=== PATIENT | female | born 1980 | race Caucasian/White ===

== ENCOUNTER 2016-03-19 04:32 | Emergency (ER) | payer BC ==
[2016-03-19 04:37] VITALS: RESP 18
[2016-03-19] MEDS ORDERED: NITROGLYCERIN OINT 1 INCH/GM PACKET TOPICAL STA (04:47)
[2016-03-19] MEDS ORDERED: ASPIRIN 81 MG CHEW PO STA (04:47)
--- NOTE | 2016-03-19 04:49 | ED ---
General Adult HPI - General Chief complaint: Chest Pain Stated complaint: chest pain Time Seen by Provider: 03/19/16 04:43 Source: patient, RN notes reviewed Mode of arrival: ambulatory Limitations: no limitations - History of Present Illness Initial comments: Patient is a pleasant 35-year-old female presenting to emergency Department complaining of chest discomfort. Onset of symptoms was around 2:00. Patient was awake at that time. Patient has had tightness in the right sternal region. There is radiation towards the right arm. No associated dyspnea, nausea, or diaphoresis. Symptoms have been waxing and waning. Discomfort is currently rated 2/10. - Related Data Home Medications Medication Instructions Recorded Confirmed Multivitamins, Thera [Multivitamin] 1 tab PO DAILY 09/22/15 03/19/16 Venlafaxine HCl [Effexor XR] 300 mg PO DAILY 09/22/15 03/19/16 lamoTRIgine [LaMICtal] 200 mg PO BID 09/22/15 03/19/16 Propranolol [Inderal] 20 mg PO BID 03/19/16 03/19/16 Allergies Allergy/AdvReac Type Severity Reaction Status Date / Time No Known Allergies Allergy Verified 09/30/15 23:48 Review of Systems ROS Statement: Those systems with pertinent positive or pertinent negative responses have been documented in the HPI. ROS Other: All systems not noted in ROS Statement are negative. Constitutional: Denies: fever Eyes: Denies: eye pain ENT: Denies: ear pain Respiratory: Denies: cough, dyspnea Cardiovascular: Reports: chest pain Endocrine: Denies: as per HPI Gastrointestinal: Denies: abdominal pain Genitourinary: Denies: dysuria Musculoskeletal: Denies: back pain Skin: Denies: rash Neurological: Denies: weakness Psychiatric: Reports: anxiety (Patient occasionally has anxiety however does not feel is related at this time.) Past Medical History Past Medical History: No Reported History History of Any Multi-Drug Resistant Organisms: None Reported Past Surgical History: Hysterectomy Past Psychological History: Anxiety, Depression Smoking Status: Never smoker Past Alcohol Use History: None Reported Past Drug Use History: None Reported General Exam Limitations: no limitations General appearance: alert, in no apparent distress Head exam: Present: atraumatic Eye exam: Present: normal appearance, PERRL ENT exam: Present: normal oropharynx Neck exam: Present: normal inspection Respiratory exam: Present: normal lung sounds bilaterally. Absent: chest wall tenderness Cardiovascular Exam: Present: regular rate, normal rhythm Expanded Peripheral pulses: 2+: Radial (R), Radial (L), Posterior Tibialis (R), Posterior Tibialis (L) GI/Abdominal exam: Present: soft. Absent: tenderness Extremities exam: Present: normal inspection. Absent: pedal edema, calf tenderness Neurological exam: Present: alert Psychiatric exam: Present: normal affect, normal mood Skin exam: Absent: rash Course Vital Signs 03/19/16 03/19/16 03/19/16 04:33 05:01 05:55 Temperature 97.2 F L Pulse Rate 81 82 87 Respiratory 18 18 18 Rate Blood Pressure 135/80 102/61 O2 Sat by Pulse 97 98 96 Oximetry EKG Findings - EKG Comments: EKG Findings:: Normal sinus rhythm at 84. Normal intervals. Normal axis. Normal QRS. Normal ST-T. Medical Decision Making - Medical Decision Making Patient reexamined and resting comfortably in bed. Patient states symptoms have further improved. Patient is updated on results and recommended admission. Patient is advised that heart disease has not been completely ruled out. Patient is advised that heart attack has not been ruled out as well as risk for heart attack in the near future. Patient does demonstrate medical decision making and family is present. Patient is advised admission for further testing and cardiac evaluation and possible stress test. Patient will leave AGAINST MEDICAL ADVICE. Patient is advised close follow-up and is agreeable to this. - Lab Data Result diagrams: 03/19/16 04:55 03/19/16 04:55 Lab Results 03/19/16 03/19/16 03/19/16 Range/Units 04:55 04:55 04:55 WBC 7.3 (3.8-10.6) k/uL RBC 4.90 (3.80-5.40) m/uL Hgb 15.0 (11.4-16.0) gm/dL Hct 44.9 (34.0-46.0) % MCV 91.7 (80.0-100.0) fL MCH 30.5 (25.0-35.0) pg MCHC 33.3 (31.0-37.0) g/dL RDW 13.7 (11.5-15.5) % Plt Count 312 (150-450) k/uL Neutrophils % 53 % Lymphocytes % 37 % Monocytes % 5 % Eosinophils % 1 % Basophils % 0 % Neutrophils # 3.9 (1.3-7.7) k/uL Lymphocytes # 2.7 (1.0-4.8) k/uL Monocytes # 0.4 (0-1.0) k/uL Eosinophils # 0.1 (0-0.7) k/uL Basophils # 0.0 (0-0.2) k/uL PT (9.0-12.0) sec INR (<1.1) APTT (22.0-30.0) sec D-Dimer (<0.60) mg/L FEU Sodium 140 (137-145) mmol/L Potassium 5.2 H (3.5-5.1) mmol/L Chloride 103 (98-107) mmol/L Carbon Dioxide 26 (22-30) mmol/L Anion Gap 11 mmol/L BUN 17 (7-17) mg/dL Creatinine 0.80 (0.52-1.04) mg/dL Est GFR (MDRD) Af Amer >60 (>60 ml/min/1.73 sqM) Est GFR (MDRD) Non-Af >60 (>60 ml/min/1.73 sqM) Glucose 77 (74-99) mg/dL Calcium 9.3 (8.4-10.2) mg/dL Magnesium 2.2 (1.6-2.3) mg/dL Total Bilirubin 0.5 (0.2-1.3) mg/dL AST 33 (14-36) U/L ALT 38 (9-52) U/L Alkaline Phosphatase 59 (38-126) U/L Total Creatine Kinase 86 (30-135) U/L CK-MB (CK-2) 0.5 (0.0-2.4) ng/mL CK-MB (CK-2) Rel Index 0.6 Troponin I <0.012 (0.000-0.034) ng/mL Total Protein 7.6 (6.3-8.2) g/dL Albumin 4.6 (3.5-5.0) g/dL 03/19/16 Range/Units 04:55 WBC (3.8-10.6) k/uL RBC (3.80-5.40) m/uL Hgb (11.4-16.0) gm/dL Hct (34.0-46.0) % MCV (80.0-100.0) fL MCH (25.0-35.0) pg MCHC (31.0-37.0) g/dL RDW (11.5-15.5) % Plt Count (150-450) k/uL Neutrophils % % Lymphocytes % % Monocytes % % Eosinophils % % Basophils % % Neutrophils # (1.3-7.7) k/uL Lymphocytes # (1.0-4.8) k/uL Monocytes # (0-1.0) k/uL Eosinophils # (0-0.7) k/uL Basophils # (0-0.2) k/uL PT 10.0 (9.0-12.0) sec INR 1.0 (<1.1) APTT 25.4 (22.0-30.0) sec D-Dimer 0.33 (<0.60) mg/L FEU Sodium (137-145) mmol/L Potassium (3.5-5.1) mmol/L Chloride (98-107) mmol/L Carbon Dioxide (22-30) mmol/L Anion Gap mmol/L BUN (7-17) mg/dL Creatinine (0.52-1.04) mg/dL Est GFR (MDRD) Af Amer (>60 ml/min/1.73 sqM) Est GFR (MDRD) Non-Af (>60 ml/min/1.73 sqM) Glucose (74-99) mg/dL Calcium (8.4-10.2) mg/dL Magnesium (1.6-2.3) mg/dL Total Bilirubin (0.2-1.3) mg/dL AST (14-36) U/L ALT (9-52) U/L Alkaline Phosphatase (38-126) U/L Total Creatine Kinase (30-135) U/L CK-MB (CK-2) (0.0-2.4) ng/mL CK-MB (CK-2) Rel Index Troponin I (0.000-0.034) ng/mL Total Protein (6.3-8.2) g/dL Albumin (3.5-5.0) g/dL - Radiology Data Radiology results: image reviewed (Chest x-ray shows no acute process) Disposition Clinical Impression: Chest pain Disposition: Left Against Medical Advice Instructions: Chest Pain (ED) Additional Instructions: Aspirin daily until further advised by Dr. Please follow-up with a primary care physician or commercial sales specialist as soon as possible. Return for increased pain, difficulty breathing, worsening or change in symptoms or other concerns. You are leaving AGAINST MEDICAL ADVICE. Referrals: None,Stated [Primary Care Provider] - 1-2 days Nicko Singh MD [STAFF PHYSICIAN] - 1-2 days Best Harvey MD [STAFF PHYSICIAN] - 1-2 days
[2016-03-19 05:10] LABS: Basophils % (A) 0 %; CH 30.9; CHCM 33.8; Eosinophils # (A) 0.1 k/uL (0-0.7); Eosinophils % (A) 1 %; HCT 44.9 % (34.0-46.0); HDW 2.42; Luc # (Auto) 0.21; Luc % (Auto) 3; Lymphocytes # (A) 2.7 k/uL (1.0-4.8); Lymphocytes % (A) 37 %; MCH 30.5 pg (25.0-35.0); MCHC 33.3 g/dL (31.0-37.0); MCV 91.7 fL (80.0-100.0); Mean Platelet Volume 6.2; Monocytes # (A) 0.4 k/uL (0-1.0); Monocytes % (A) 5 %; Neutrophils # (A) 3.9 k/uL (1.3-7.7); Neutrophils % (A) 53 %; RDW 13.7 % (11.5-15.5); WBC 7.3 k/uL (3.8-10.6); WBC (Perox) 7.45
[2016-03-19 05:20] LABS: ALT 38 U/L (9-52); AST 33 U/L (14-36); Alkaline Phosphatase 59 U/L (38-126); Anion Gap 11 mmol/L; Blood Urea Nitrogen 17 mg/dL (7-17); Calcium 9.3 mg/dL (8.4-10.2); Carbon Dioxide 26 mmol/L (22-30); Chloride 103 mmol/L (98-107); Glucose 77 mg/dL (74-99); Magnesium 2.2 mg/dL (1.6-2.3); Non-African American GFR(MDRD) >60 (>60 ml/min/1.73 sqM); Sodium 140 mmol/L (137-145); Total Bilirubin 0.5 mg/dL (0.2-1.3); Total Protein 7.6 g/dL (6.3-8.2)
--- NOTE | 2016-03-19 05:21 | XR ---
EXAMINATION TYPE: XR chest 1V portable DATE OF EXAM: 03/19/2016 5:10 AM COMPARISON: NONE HISTORY: Chest pain on the right side TECHNIQUE: Single frontal view of the chest is obtained. FINDINGS: There is no focal air space opacity, pleural effusion, or pneumothorax seen. The cardiac silhouette size is within normal limits. The osseous structures are intact. IMPRESSION: No acute process.
[2016-03-19 05:22] LABS: Potassium 5.2 mmol/L (3.5-5.1)
[2016-03-19 05:32] LABS: Creatine Kinase 86 U/L (30-135)
[2016-03-19 05:36] LABS: Partial Thromboplastin Time 25.4 sec (22.0-30.0)
[2016-03-19 05:44] LABS: Creatine Kinase MB 0.5 ng/mL (0.0-2.4); Troponin I <0.012 ng/mL (0.000-0.034)
[2016-03-19 06:24] VITALS: BP 124/64; PULSE 92; TEMP 98
== END 2016-03-19 06:24 | disposition left against medical advice (07) ==
LOC: EC 04:32
DX: R07.9 Chest pain, unspecified (principal); F32.9 Major depressive disorder, single episode, unspecified; F41.9 Anxiety disorder, unspecified; Z79.899 Other long term (current) drug therapy
CPT/HCPCS: 36415; 71010; 80053; 82550; 82553; 83735; 84484; 85025; 85379; 85610; 85730; 93005; 99285

== ENCOUNTER 2016-08-05 14:31 | Observation (INO) | payer BC ==
--- NOTE | 2016-08-05 16:10 | ED ---
General Adult HPI - General Chief complaint: Shortness of Breath Stated complaint: SOB Time Seen by Provider: 08/05/16 15:32 Source: patient, RN notes reviewed Mode of arrival: ambulatory Limitations: no limitations - History of Present Illness Initial comments: Patient's a 36-year-old female who presents emergency room today with chief complaint of shortness of breath with exertion. She does admit that she's noticed over the last few weeks that she's had increased shortness breath with normal daily routines. She states that she comes very short of breath and diaphoretic. She states that she's noticed the swelling over the last 2 weeks. She states she's never had symptoms quite like this in the past. states currently comfortable at this time denies any complaints currently Resting in a stretcher. Patient denies any recent fever, chills, shortness of breath, chest pain, back pain, abdominal pain, nausea or vomiting, numbness or tingling, dysuria or hematuria, constipation or diarrhea, headaches or visual changes, or any other complaints. - Related Data Home Medications Medication Instructions Recorded Confirmed lamoTRIgine [LaMICtal] 200 mg PO BID 09/22/15 08/05/16 ALPRAZolam [Xanax] 0.5 mg PO DAILY PRN 08/05/16 08/05/16 FLUoxetine HCL [PROzac] 20 mg PO DAILY@1200 08/05/16 08/05/16 Multivit with Calcium,Iron,Min 1 tab PO DAILY@1200 08/05/16 08/05/16 [Women's Multivitamin] Propranolol HCl [Propranolol HCl 60 mg PO DAILY@1200 08/05/16 08/05/16 ER] SUMAtriptan SUCCINATE [Imitrex] 100 mg PO DAILY PRN 08/05/16 08/05/16 Sennosides/Docusate Sodium 1 tab PO HS 08/05/16 08/05/16 [Renetta-Colace Tablet] Venlafaxine HCl [Effexor XR] 225 mg PO DAILY@1200 08/05/16 08/05/16 Allergies Allergy/AdvReac Type Severity Reaction Status Date / Time No Known Allergies Allergy Verified 08/05/16 15:46 Review of Systems ROS Statement: Those systems with pertinent positive or pertinent negative responses have been documented in the HPI. ROS Other: All systems not noted in ROS Statement are negative. Past Medical History Past Medical History: No Reported History History of Any Multi-Drug Resistant Organisms: None Reported Past Surgical History: Hysterectomy, Orthopedic Surgery Additional Past Surgical History / Comment(s): hand right Past Psychological History: Anxiety, Depression Smoking Status: Never smoker Past Alcohol Use History: None Reported Past Drug Use History: None Reported General Exam - General Exam Comments Initial Comments: General: The patient is awake and alert, in no distress, and does not appear acutely ill. Eye: Pupils are equal, round and reactive to light, extra-ocular movements are intact. No nystagmus. There is normal conjunctiva bilaterally. No signs of icterus. Ears, nose, mouth and throat: There are moist mucous membranes and no oral lesions. Neck: The neck is supple, there is no tenderness or JVD. Cardiovascular: There is a regular rate and rhythm. No murmur, rub or gallop is appreciated. Respiratory: Lungs are clear to auscultation, respirations are non-labored, breath sounds are equal. No wheezes, stridor, rales, or rhonchi. Musculoskeletal: Normal ROM, no tenderness. Strength 5/5. Sensation intact. Pulses equal bilaterally 2+. Neurological: A&O x 3. CN II-XII intact, There are no obvious motor or sensory deficits. Coordination appears grossly intact. Speech is normal. Skin: Skin is warm and dry and no rashes or lesions are noted. Psychiatric: Cooperative, appropriate mood & affect, normal judgment. Limitations: no limitations Course Vital Signs 08/05/16 08/05/16 08/05/16 14:33 15:52 18:01 Temperature 97.6 F Pulse Rate 80 72 68 Respiratory 18 18 18 Rate Blood Pressure 129/72 117/76 125/78 O2 Sat by Pulse 100 97 98 Oximetry EKG Findings - EKG Comments: EKG Findings:: EKG performed at 1609: A 12-lead EKG was performed and interpreted by me as showing the following: Rate is 65, and rhythm is normal sinus. There are normal QRS complexes and normal R-wave progression. ST segments have no elevation or depression, and MS segments appear normal. Medical Decision Making - Medical Decision Making Patient reexamined at this time shows no signs of distress resting comfortably. She states that the symptoms are only with exertion. Patient does admit that she becomes diaphoretic and short of breath. She does admit to a family history of cardiac disease. Her EKG shows normal sinus rhythm. Cardiac enzymes are negative. D-dimer negative. Chest x-ray negative for any acute abnormalities. Case was discussed with admitting physician Dr. Sarmiento who will admit the patient with consult cardiology. - Lab Data Result diagrams: 08/05/16 16:45 08/05/16 16:45 Lab Results 08/05/16 08/05/16 08/05/16 Range/Units 16:08 16:08 16:45 WBC (3.8-10.6) k/uL RBC (3.80-5.40) m/uL Hgb (11.4-16.0) gm/dL Hct (34.0-46.0) % MCV (80.0-100.0) fL MCH (25.0-35.0) pg MCHC (31.0-37.0) g/dL RDW (11.5-15.5) % Plt Count (150-450) k/uL Neutrophils % % Lymphocytes % % Monocytes % % Eosinophils % % Basophils % % Neutrophils # (1.3-7.7) k/uL Lymphocytes # (1.0-4.8) k/uL Monocytes # (0-1.0) k/uL Eosinophils # (0-0.7) k/uL Basophils # (0-0.2) k/uL PT (9.0-12.0) sec INR (<1.1) APTT (22.0-30.0) sec D-Dimer (<0.60) mg/L FEU Sodium 141 (137-145) mmol/L Potassium 4.6 (3.5-5.1) mmol/L Chloride 104 (98-107) mmol/L Carbon Dioxide 27 (22-30) mmol/L Anion Gap 10 mmol/L BUN 17 (7-17) mg/dL Creatinine 0.80 (0.52-1.04) mg/dL Est GFR (MDRD) Af Amer >60 (>60 ml/min/1.73 sqM) Est GFR (MDRD) Non-Af >60 (>60 ml/min/1.73 sqM) Glucose 94 (74-99) mg/dL Calcium 9.9 (8.4-10.2) mg/dL Total Bilirubin 0.5 (0.2-1.3) mg/dL AST 28 (14-36) U/L ALT 37 (9-52) U/L Alkaline Phosphatase 65 (38-126) U/L Total Creatine Kinase (30-135) U/L CK-MB (CK-2) (0.0-2.4) ng/mL CK-MB (CK-2) Rel Index Troponin I (0.000-0.034) ng/mL Total Protein 7.9 (6.3-8.2) g/dL Albumin 4.7 (3.5-5.0) g/dL TSH 3.950 (0.465-4.680) mIU/L Urine Color Yellow Urine Appearance Clear (Clear) Urine pH 6.0 (5.0-8.0) Ur Specific [place] 1.019 (1.001-1.035) Urine Protein Negative (Negative) Urine Glucose (UA) Negative (Negative) Urine Ketones Negative (Negative) Urine Blood Negative (Negative) Urine Nitrite Negative (Negative) Urine Bilirubin Negative (Negative) Urine Urobilinogen <2.0 (<2.0) mg/dL Ur Leukocyte Esterase Negative (Negative) Urine HCG, Qual Not Detected (Not Detectd) 08/05/16 08/05/16 08/05/16 Range/Units 16:45 16:45 16:45 WBC 5.7 (3.8-10.6) k/uL RBC 4.83 (3.80-5.40) m/uL Hgb 14.9 (11.4-16.0) gm/dL Hct 43.4 (34.0-46.0) % MCV 89.7 (80.0-100.0) fL MCH 30.8 (25.0-35.0) pg MCHC 34.4 (31.0-37.0) g/dL RDW 13.3 (11.5-15.5) % Plt Count 263 (150-450) k/uL Neutrophils % 53 % Lymphocytes % 38 % Monocytes % 5 % Eosinophils % 1 % Basophils % 1 % Neutrophils # 3.0 (1.3-7.7) k/uL Lymphocytes # 2.1 (1.0-4.8) k/uL Monocytes # 0.3 (0-1.0) k/uL Eosinophils # 0.1 (0-0.7) k/uL Basophils # 0.0 (0-0.2) k/uL PT 9.9 (9.0-12.0) sec INR 1.0 (<1.1) APTT 25.4 (22.0-30.0) sec D-Dimer 0.35 (<0.60) mg/L FEU Sodium (137-145) mmol/L Potassium (3.5-5.1) mmol/L Chloride (98-107) mmol/L Carbon Dioxide (22-30) mmol/L Anion Gap mmol/L BUN (7-17) mg/dL Creatinine (0.52-1.04) mg/dL Est GFR (MDRD) Af Amer (>60 ml/min/1.73 sqM) Est GFR (MDRD) Non-Af (>60 ml/min/1.73 sqM) Glucose (74-99) mg/dL Calcium (8.4-10.2) mg/dL Total Bilirubin (0.2-1.3) mg/dL AST (14-36) U/L ALT (9-52) U/L Alkaline Phosphatase (38-126) U/L Total Creatine Kinase 115 (30-135) U/L CK-MB (CK-2) 0.8 (0.0-2.4) ng/mL CK-MB (CK-2) Rel Index 0.7 Troponin I <0.012 (0.000-0.034) ng/mL Total Protein (6.3-8.2) g/dL Albumin (3.5-5.0) g/dL TSH (0.465-4.680) mIU/L Urine Color Urine Appearance (Clear) Urine pH (5.0-8.0) Ur Specific [place] (1.001-1.035) Urine Protein (Negative) Urine Glucose (UA) (Negative) Urine Ketones (Negative) Urine Blood (Negative) Urine Nitrite (Negative) Urine Bilirubin (Negative) Urine Urobilinogen (<2.0) mg/dL Ur Leukocyte Esterase (Negative) Urine HCG, Qual (Not Detectd) Disposition Clinical Impression: Exertional dyspnea, Atypical chest pain Disposition: ADMITTED IP TO THIS [facility] Condition: Stable Referrals: None,Stated [Primary Care Provider] - 1-2 days Time of Disposition: 18:22
[2016-08-05 16:31] LABS: Appearance,Urine Clear (Clear); Bilirubin,Urine Negative (Negative); Glucose,Urine (UA) Negative (Negative); Ketones,Urine Negative (Negative); Leukocyte Esterase,Urine Negative (Negative); Nitrite,Urine Negative (Negative); Protein,Urine Negative (Negative); Specific Gravity,Urine 1.019 (1.001-1.035); UA Billing (MACRO vs. MICRO) CHEM; Urobilinogen,Urine <2.0 mg/dL (<2.0)
[2016-08-05 16:56] LABS: Basophils % (A) 1 %; CH 30.6; CHCM 34.3; Eosinophils # (A) 0.1 k/uL (0-0.7); Eosinophils % (A) 1 %; HCT 43.4 % (34.0-46.0); HDW 2.43; HGB 14.9 gm/dL (11.4-16.0); Luc # (Auto) 0.15; Luc % (Auto) 3; Lymphocytes # (A) 2.1 k/uL (1.0-4.8); Lymphocytes % (A) 38 %; MCH 30.8 pg (25.0-35.0); MCHC 34.4 g/dL (31.0-37.0); MCV 89.7 fL (80.0-100.0); Mean Platelet Volume 6.5; Monocytes # (A) 0.3 k/uL (0-1.0); Monocytes % (A) 5 %; Neutrophils % (A) 53 %; RBC 4.83 m/uL (3.80-5.40); RDW 13.3 % (11.5-15.5); WBC 5.7 k/uL (3.8-10.6); WBC (Perox) 5.56
--- NOTE | 2016-08-05 16:56 | XR ---
EXAMINATION TYPE: XR chest 2V DATE OF EXAM: 08/05/2016 COMPARISON: 03/19/2016 HISTORY: Short of breath TECHNIQUE: Frontal and lateral views of the chest are obtained. FINDINGS: Heart and mediastinum are normal. Lungs are clear of consolidation. There are no hilar mas ses. Bony thorax is intact. There is a small linear density behind the heart in the left lower lobe. IMPRESSION: There is probably focal atelectasis in the left lower lobe that is new compared to last exam. Normal heart.
[2016-08-05 17:05] LABS: Partial Thromboplastin Time 25.4 sec (22.0-30.0); Prothrombin Time 9.9 sec (9.0-12.0)
[2016-08-05 17:06] LABS: ALT 37 U/L (9-52); AST 28 U/L (14-36); Alkaline Phosphatase 65 U/L (38-126); Anion Gap 10 mmol/L; Blood Urea Nitrogen 17 mg/dL (7-17); Calcium 9.9 mg/dL (8.4-10.2); Carbon Dioxide 27 mmol/L (22-30); Chloride 104 mmol/L (98-107); Glucose 94 mg/dL (74-99); Non-African American GFR(MDRD) >60 (>60 ml/min/1.73 sqM); Potassium 4.6 mmol/L (3.5-5.1); Sodium 141 mmol/L (137-145); Total Bilirubin 0.5 mg/dL (0.2-1.3); Total Protein 7.9 g/dL (6.3-8.2)
[2016-08-05 17:16] LABS: Creatine Kinase 115 U/L (30-135)
[2016-08-05 17:29] LABS: Creatine Kinase MB 0.8 ng/mL (0.0-2.4); Troponin I <0.012 ng/mL (0.000-0.034)
[2016-08-05] MEDS ORDERED: NALOXONE 0.4 MG/ML 1 ML VIAL IV PRN (18:33)
[2016-08-05] MEDS ORDERED: SODIUM CHLORIDE 0.9% 1,000 ML IV ONE (18:33)
[2016-08-05] MEDS ORDERED: NITROGLYCERIN SL TABS 0.4 MG TAB SUBLINGUAL PRN (18:41)
[2016-08-05] MEDS ORDERED: ASPIRIN 81 MG CHEW PO STA (18:41)
[2016-08-05] MEDS ORDERED: ALPRAZolam 0.5 MG TAB PO PRN (18:55)
[2016-08-05] MEDS ORDERED: ALPRAZolam 0.5 MG TAB PO STA (18:56)
[2016-08-05 21:48] VITALS: BMI 33.2
[2016-08-05 23:11] LABS: Creatine Kinase 110 U/L (30-135)
[2016-08-05 23:22] LABS: Creatine Kinase MB 0.8 ng/mL (0.0-2.4); Troponin I <0.012 ng/mL (0.000-0.034)
[2016-08-06] MEDS: lamoTRIgine 100 MG TAB PO SCH ×2 (00:15→10:13)
[2016-08-06 06:22] LABS: Cholesterol 286 mg/dL (<200); HDL Cholesterol 49 mg/dL (40-60); Triglycerides 486 mg/dL (<150)
[2016-08-06 06:36] LABS: Creatine Kinase 109 U/L (30-135)
[2016-08-06 06:47] LABS: Creatine Kinase MB 0.7 ng/mL (0.0-2.4); Troponin I <0.012 ng/mL (0.000-0.034)
[2016-08-06 07:46] VITALS: RESP 18
--- NOTE | 2016-08-06 08:02 | CONS ---
DATE OF CONSULTATION: A 36-year-old lady with history of migraines presented to the hospital complaining of exertional fatigue and exertional shortness of breath over the last several weeks. She is admitted with a diagnosis of unstable angina. Her EKG does not reveal ischemic changes. Cardiac enzymes have been negative. She has severe dyslipidemia with triglycerides of 486, total cholesterol 286 with a normal HDL of 49. TSH is normal. Her D-dimer on admission was normal. Fasting blood sugar results were normal. Past medical history is negative for hypertension, diabetes, dyslipidemia. Medications include Imitrex, propranolol, Prozac, Xanax, Effexor, Lamictal and multivitamins. ALLERGIES: There are no known drug allergies. Family history is negative for premature coronary artery disease. Social history is negative for smoking, EtOH abuse or drug abuse. REVIEW OF SYSTEMS: HEENT: Unremarkable. CARDIAC: As described above. RESPIRATORY: Negative. GI: Negative. GENITOURINARY: Negative. ALLERGY/IMMUNOLOGY: Negative. SKIN: Negative. MUSCULOSKELETAL: Negative. ENDOCRINE: Negative. NEUROLOGIC: Negative. DERMATOLOGIC: Negative. CONSTITUTIONAL: Negative. ONCOLOGICAL: Negative. HEMATOLOGICAL: Negative. The rest of the system review is not relevant. On exam, comfortable at rest. Vital signs are stable. There is no jugular venous distention. Carotid upstroke is normal. There is no bruit. Chest exam reveals good air entry bilaterally. Heart exam reveals first and second heart sounds. No gallop. No murmur, no rub. Abdomen is soft, nontender. Exam of extremities did not reveal edema. Peripheral pulses are felt. INTELLIGENCE SPECIALIST exam did not reveal focal neurological deficits. Labs show a hemoglobin of 14.9, platelet count is 263, potassium is 4.6. Creatinine is 0.8. Tropes are negative. TSH is normal. Lipid profile shows a total cholesterol of 286, triglycerides of 486. ASSESSMENT: 1. Exertional shortness of breath; rule out cardiac causes. 2. Dyslipidemia. PLAN: I am going to obtain a 2-D echocardiogram on her to evaluate her LV function. She has a family history of dilated cardiomyopathy in her father. I will also obtain a stress test to rule out ischemic heart disease and we will make further recommendations based on these test results.
[2016-08-06] MEDS ORDERED: ASPIRIN 325 MG TAB PO SCH (09:00)
[2016-08-06] MEDS ORDERED: ATORVASTATIN 40 MG TAB PO SCH (09:00)
--- NOTE | 2016-08-06 11:27 | ECHOF ---
Referral Reason:cp, heart structure and function MEASUREMENTS -------- HEIGHT: 175.3 cm WEIGHT: 102.1 kg BP: 124/80 RVIDd: 2.4 cm (< 3.3) IVSd: 1.2 cm (0.6 - 1.1) LVIDd: 4.8 cm (3.9 - 5.3) LVPWd: 1.2 cm (0.6 - 1.1) IVSs: 1.5 cm LVIDs: 3.5 cm LVPWs: 1.6 cm LA Diam: 3.3 cm (2.7 - 3.8) LAESV Index (A-L): 21.52 ml/m Ao Diam: 3.0 cm (2.0 - 3.7) AV Cusp: 1.8 cm (1.5 - 2.6) LA Diam: 3.3 cm (2.7 - 3.8) MV EXCURSION: 22.213 mm (> 18.000) MV EF SLOPE: 103 mm/s (70 - 150) EPSS: 0.6 cm MV E Lisandro: 0.64 m/s MV DecT: 192 ms MV A Lisandro: 0.52 m/s MV E/A Ratio: 1.23 RAP: 5.00 mmHg RVSP: 14.00 mmHg FINDINGS -------- Sinus rhythm. This was a technically excellent study. There is mild concentric left ventricular hypertrophy. Overall left ventricular systolic function is normal with, an EF between 55 - 60 %. The right ventricle is normal in size. Normal LA size by volume 22+/-6 ml/m2. The right atrial size is normal. The aortic valve is trileaflet, and appears structurally normal. No aortic stenosis or regurgitation. Mild mitral annular calcification present. Mild mitral regurgitation is present. Mild tricuspid regurgitation present. There is no evidence of pulmonary hypertension. The right ventricular systolic pressure, as measured by Doppler, is 14.00mmHg. There is no pulmonic regurgitation present. The aortic root size is normal. There is no pericardial effusion. CONCLUSIONS -------- 1. There is mild concentric left ventricular hypertrophy. 2. Overall left ventricular systolic function is normal with, an EF between 55 - 60 %. 3. Mild mitral annular calcification present. 4. Mild mitral regurgitation is present. 5. Mild tricuspid regurgitation present. 6. There is no evidence of pulmonary hypertension. 7. The right ventricular systolic pressure, as measured by Doppler, is 14.00mmHg. [employer]OL MACHINE [employer] SUPERVISOR: Veronica Beltran RDCS
[2016-08-06 11:37] VITALS: BP 103/69; PULSE 81; TEMP 97.7
[2016-08-06] MEDS ORDERED: SUMAtriptan SUCCINATE 50 MG TAB PO PRN (11:45)
[2016-08-06] MEDS ORDERED: VENLAFAXINE HCL ER 75 MG CAP PO SCH (12:00)
[2016-08-06] MEDS ORDERED: FLUoxetine HCL 20 MG CAP PO SCH (12:00)
[2016-08-06] MEDS ORDERED: MULTIVITAMINS, THERA 1 EACH TAB PO SCH (12:00)
[2016-08-06] MEDS ORDERED: PROPRANOLOL LA 60 MG CAP.SA.24H PO SCH (12:00)
--- NOTE | 2016-08-06 12:26 | EST ---
DATE OF SERVICE: 08/06/2016 AGE: 36Y SEX: F HT: 69 WT: 225 lbs. Protocol Darius: X Other: Stage: I Dur. of Exercise: 3:16 *Heart Rate Blood Pressure *Rest: 77 Rest: 128/80 * *Max. Achieved: 126 Maximum BP: 173/75 85% PMHR: 155 100% PMHR: 182 *METS: 4.2 INDICATION OF THE STUDY: Chest pain. MEDICATIONS: Effexor, Inderal. STRESS DATA: Pretesting physical examination showed heart rate of 77, pressure is 128/80 mmHg. Baseline EKG shows sinus rhythm. The patient exercised on the treadmill according to Darius protocol for a total of 3 minutes and 16 seconds and achieved 4.2 METs. Max heart rate was 126, which is about 69% of maximum predicted heart rate. Maximum blood pressure was 173/75 mmHg. Clinically, the patient did not have any symptoms of chest pain or discomfort, but she developed mild shortness of breath. The EKG did not show any significant ST or T wave abnormalities consistent with ischemia. CONCLUSION: 1. Poor exercise capacity. 2. This is an indeterminate stress test due to the patient not achieving 85% of maximum predicted heart rate.
--- NOTE | 2016-08-06 14:01 | PN ---
Colleen is admitted with shortness of breath, ruled out for myocardial infarction. EKG does not reveal ischemic changes. She had a regular treadmill stress test that was inconclusive, had an echocardiogram that showed normal LV function without any evidence of pulmonary hypertension. She only walked for 3-1/2 minutes and the heart did not increase. Test was stopped due to inability to exercise further. I reviewed stress test results with the patient and advised her to undergo a stress imaging study. This will be done as outpatient. Patient does not have any chest pain and all her work-up so far has been negative.
--- NOTE | 2016-08-06 18:50 | HP ---
DATE OF ADMISSION: DATE OF DICTATION: 08/06/2016 CHIEF COMPLAINT: Shortness of breath. HISTORY OF PRESENT ILLNESS: This 36-year-old woman with a past medical history of multiple medical problems, including history of pneumonia, history of DJD, history of anxiety, depression, not followed by a primary physician in the outpatient setting, was admitted with shortness of breath to [facility]. The patient over the last few weeks had increasing shortness of breath with mild daily routines. Otherwise, there is no history of any fever, rigor or chills, no history of headache, loss of consciousness, seizures. No history of chest pain per se. No history of any palpitations. Patient was evaluated in the ER and admitted. Troponins were negative. TSH is 3.950. D-dimer was 0.35. The patient's chest x-ray showed some focal atelectasis in the left lower lobe. Two-D echo showed ejection fraction about 55% to 60%. Patient also had a stress test which was reviewed by Dr. Lovett and was deemed to show no evidence of reversible ischemia. There is no history of any fever, rigor, or chills. No history of any headache, loss of consciousness, seizures. PAST MEDICAL HISTORY: 1. History is pneumonia. 2. History of DJD. 3. History of anxiety, depression. HOME MEDICATIONS: 1. Imitrex 100 mg p.r.n. 2. Propranolol 60 mg daily. 3. Prozac 20 mg daily. 4. Xanax 0.5 daily. 5. Effexor XR 225 mg p.o. daily. 6. Renetta-Colace 1 tablet p.o. at bedtime. 7. Lamictal mg p.o. b.i.d. 8. Multivitamins 1 p.o. daily. ALLERGIES: NONE. FAMILY HISTORY: History of CHF in the family. SOCIAL HISTORY: No history of smoking. No history of alcohol intake. REVIEW OF SYSTEMS: ENT: No diminishing hearing. No diminished vision. CARDIOVASCULAR: As mentioned earlier. RESPIRATORY SYSTEM: As mentioned earlier. GI: No nausea or vomiting. : No dysuria. NERVOUS SYSTEM: No numbness or weakness. ALLERGY/IMMUNOLOGY: No asthma, hayfever. MUSCULOSKELETAL: As mentioned earlier. HEMATOLOGY/ONCOLOGY: No history of anemia. ENDOCRINE: No history of diabetes. CONSTITUTIONAL: As mentioned earlier. DERMATOLOGY: Negative. RHEUMATOLOGY: Negative. PSYCHIATRY: As mentioned earlier. PHYSICAL EXAMINATION: Alert and oriented x3. Pulse 81, blood pressure 103/69, respiratory rate 18, temperature 97.9, pulse ox 97% on room air. HEENT: Conjunctivae normal. Oral mucosa moist. NECK: No jugular venous distention. No carotid bruit. No lymph node enlargement. CARDIOVASCULAR SYSTEM: S1, S2 muffled. No S3. No S4. RESPIRATORY SYSTEM: Breath sounds diminished at the bases. No rhonchi. No crackles. ABDOMEN: Soft, non-tender. No mass palpable. No hepatosplenomegaly. LEGS: No edema. No swelling. NERVOUS SYSTEM: Higher functions as mentioned earlier. Moves all 4 limbs. No focal motor or sensory deficit. LYMPHATICS: No lymph node palpable in neck, axillae or groin. SKIN: No ulcer, rash, bleeding. LABS: CBC noted. Other labs are noted. Triglycerides are 480. Cholesterol is 286. ASSESSMENT: 1. Shortness of breath for evaluation. Rule out coronary artery disease. 2. Left lower lobe atelectasis. 3. Hypertriglyceridemia. 4. Hypercholesterolemia. 5. History of pneumonia. 6. History of degenerative joint disease. 7. Anxiety, depression not otherwise specified. RECOMMENDATIONS AND DISCUSSION: In this 36-year-old woman who presented with multiple complex medical issues, at this time I recommend to continue with the current medications, continue with the symptomatic treatment. Otherwise, Cardiology has completed an evaluation, including a stress test which did not show any acute abnormality. I would recommend following closely with Cardiology. Discharge home and continued to monitor. Otherwise, prognosis is guarded. The patient is keen on going home at this time. Discussed with staff. Further recommendations to follow. See orders for further details. MTDD
[2016-08-06] MEDS ORDERED: SENNOSIDES-DOCUSATE SODIUM 1 EACH TAB PO SCH (21:00)
--- NOTE | 2016-08-07 13:06 | DS ---
DATE OF ADMISSION: 08/05/2016 DATE OF DISCHARGE: 08/06/2016 DATE OF SERVICE: 08/06/2016 FINAL DIAGNOSES: 1. Shortness of breath for evaluation, possibly atelectasis. 2. Negative stress test. 3. Hypertriglyceridemia. 4. Hyperlipidemia. 5. History of pneumonia. 6. History of the degenerative joint disease. 7. History of anxiety, depression, not otherwise specified. DISCHARGE DISPOSITION: The patient will be discharged in stable condition with guarded prognosis. HISTORY OF PRESENT ILLNESS: This 36-year-old woman with a past medical history of multiple medical problems admitted with shortness of breath. Myocardial infarction ruled out. Cardiology performed a stress test which was reviewed y Dr. Lovett which showed no evidence of reversible ischemia. The D-dimer was negative and chest x-ray showed some atelectasis. Overall, patient improved significantly. Recommended close follow up with Dr. Patiño in the outpatient setting. The patient and family are extremely keen on going home also. DISCHARGE ADVICE: 1. Diet is cardiac. 2. Activity limited until followup. 3. Follow up with Dr. Patiño in 2 to 3. 4. Follow up with Dr. Lovett as recommended. Medications are as follows: 1. Xanax 0.5 p.o. daily p.r.n. 2. Prozac 20 mg daily. 3. Lamictal 200 mg p.o. b.i.d. 4. Multivitamins 1 p.o. daily. 5. Propranolol 60 mg p.o. daily. 6. Senna 1 tablet q.h.s. 7. Imitrex 100 mg p.o. daily. 8. Effexor XR 226 mg p.o. daily. 9. Lipitor 20 mg q.h.s. Follow up with Dr. Patiño and follow up with Cardiology as recommended. Once again, the patient will be discharged in stable condition with guarded prognosis. MTDD
== END 2016-08-06 14:40 | disposition home or self-care (01) ==
LOC: EC 14:31 → 3OBS 20:03
PROVIDERS: ADMIT Internal Medicine; ATTEND Internal Medicine
DX: R06.02 Shortness of breath (principal); R61 Generalized hyperhidrosis; Z79.899 Other long term (current) drug therapy; F41.9 Anxiety disorder, unspecified; F32.9 Major depressive disorder, single episode, unspecified; Z82.49 Family history of ischemic heart disease and other diseases of the circulatory system; E78.5 Hyperlipidemia, unspecified; E78.1 Pure hyperglyceridemia; Z87.01 Personal history of pneumonia (recurrent); M19.90 Unspecified osteoarthritis, unspecified site; E78.00 Pure hypercholesterolemia, unspecified; G43.909 Migraine, unspecified, not intractable, without status migrainosus
CPT/HCPCS: 36415; 93005; 93017; 93306; 85379; 80061; 80053; 84443; 82550 ×2; 82553 ×2; 84484 ×2; 85025; 85610; 85730; 81003; 81025; 71020; 99285; 96360; G0378 ×2

== ENCOUNTER 2017-01-29 08:19 | Emergency (ER) | payer BC ==
--- NOTE | 2017-01-29 08:35 | ED ---
Female Urogenital HPI - General Chief complaint: Urogenital Stated complaint: BLADDER PROBLEM Time Seen by Provider: 01/29/17 08:26 Source: patient, RN notes reviewed Mode of arrival: ambulatory Limitations: no limitations - History of Present Illness Initial comments: This is a 36-year-old female presents emergency Department chief complaint difficulty urinating. Patient states the last 1 month she's had it could be getting urine out. She states that she feels that she really has to push and she never feels like she completely empties her bladder. Patient states last night and this morning seems to be the worse. She states Thursday a little about at a time. Patient states she's had frequency but no dysuria. Denies any flank pain, back pain, nausea, vomiting, diarrhea. Patient states she does suffer with chronic constipation issues. Patient states that she's had no prior surgeries or lumbar spine denies any lower extremity weakness denies saddle anesthesias, lower [place] paresthesias. Patient states that she has had a hysterectomy in 2010 and was told that the suture her bladder up because it was dropping. Patient states that she had a pelvic exam for Pap smear a few years ago and told her was fine but she is concerned that she may become occasions. - Related Data Home Medications Medication Instructions Recorded Confirmed lamoTRIgine [LaMICtal] 200 mg PO BID@1200,1800 09/22/15 01/29/17 ALPRAZolam [Xanax] 0.5 mg PO DAILY PRN 08/05/16 01/29/17 Multivit with Calcium,Iron,Min 1 tab PO DAILY@1200 08/05/16 01/29/17 [Women's Multivitamin] Atorvastatin [Lipitor] 20 mg PO DAILY 01/29/17 01/29/17 FLUoxetine HCL [PROzac] 40 mg PO DAILY 01/29/17 01/29/17 Prazosin HCl [Minipress] 2 mg PO HS 01/29/17 01/29/17 Venlafaxine HCl [Effexor XR] 150 mg PO DAILY 01/29/17 01/29/17 Previous Rx's Medication Instructions Recorded Phenazopyridine [Pyridium] 200 mg PO TID #6 tablet 01/29/17 Allergies Allergy/AdvReac Type Severity Reaction Status Date / Time No Known Allergies Allergy Verified 01/29/17 08:59 Review of Systems ROS Statement: Those systems with pertinent positive or pertinent negative responses have been documented in the HPI. ROS Other: All systems not noted in ROS Statement are negative. Past Medical History Past Medical History: Pneumonia History of Any Multi-Drug Resistant Organisms: None Reported Past Surgical History: Hysterectomy, Orthopedic Surgery Additional Past Surgical History / Comment(s): hand right Past Anesthesia/Blood Transfusion Reactions: No Reported Reaction Past Psychological History: Anxiety, Depression Smoking Status: Never smoker Past Alcohol Use History: None Reported Past Drug Use History: None Reported - Past Family History Father Family Medical History: Congestive Heart Failure (CHF) General Exam Limitations: no limitations General appearance: alert, in no apparent distress Head exam: Present: atraumatic, normocephalic, normal inspection Respiratory exam: Present: normal lung sounds bilaterally. Absent: respiratory distress, wheezes, rales, rhonchi, stridor Cardiovascular Exam: Present: regular rate, normal rhythm, normal heart sounds. Absent: systolic murmur, diastolic murmur, rubs, gallop, clicks GI/Abdominal exam: Present: soft, normal bowel sounds. Absent: distended, tenderness, guarding, rebound, rigid Back exam: Present: full ROM. Absent: tenderness, CVA tenderness (R), CVA tenderness (L), paraspinal tenderness, vertebral tenderness Neurological exam: Present: reflexes normal. Absent: motor sensory deficit Skin exam: Present: warm, dry, intact, normal color. Absent: rash Course Vital Signs 01/29/17 08:22 Temperature 97.5 F L Pulse Rate 90 Respiratory 20 Rate Blood Pressure 121/64 O2 Sat by Pulse 98 Oximetry Medical Decision Making - Medical Decision Making 28-year-old female presented emergency department for sensation of unable to urinate. Patient was able to urinate tomorrow here. She only had less than 40 mL of residual bladder scan. Patient may be having some difficulty secondary to live for disorder. Patient will follow-up with GRAIN MANAGER who performed surgery on her bladder in the past. Patient will also be given Pyridium and she states she has problems and just cystitis. She states that she has a constant feeling she has to go. - Lab Data Lab Results 01/29/17 Range/Units 08:46 Urine Color Yellow Urine Appearance Clear (Clear) Urine pH 6.0 (5.0-8.0) Ur Specific [place] 1.030 (1.001-1.035) Urine Protein 1+ (Negative) Urine Glucose (UA) Negative (Negative) Urine Ketones Negative (Negative) Urine Blood Negative (Negative) Urine Nitrite Negative (Negative) Urine Bilirubin Negative (Negative) Urine Urobilinogen <2.0 (<2.0) mg/dL Ur Leukocyte Esterase Small (Negative) Ur Squamous Epith Cells 1 (0-4) /hpf Disposition Clinical Impression: Urinary dysfunction Disposition: HOME SELF-CARE Condition: Stable Instructions: Acute Urinary Retention in Women (ED) Additional Instructions: Please return to the Emergency Department if symptoms worsen or any other concerns. Follow-up with your GRAIN MANAGER as directed. Prescriptions: Phenazopyridine [Pyridium] 200 mg PO TID #6 tablet Referrals: Parish Moreno DO [Primary Care Provider] - 1-2 days Time of Disposition: 10:01
[2017-01-29 09:17] LABS: Appearance,Urine Clear (Clear); Protein,Urine 1+ (Negative)
[2017-01-29 09:18] LABS: Glucose,Urine (UA) Negative (Negative); Ketones,Urine Negative (Negative)
[2017-01-29 09:19] LABS: Bilirubin,Urine Negative (Negative); Leukocyte Esterase,Urine Small (Negative); Nitrite,Urine Negative (Negative); UA Billing (MACRO vs. MICRO) MICRO
[2017-01-29 09:25] LABS: Urobilinogen,Urine <2.0 mg/dL (<2.0)
[2017-01-29 09:28] LABS: Squamous Epithelial Cell,Urine 1 /hpf (0-4)
[2017-01-29 10:12] VITALS: BP 137/64; PULSE 72; RESP 16; TEMP 97.1
== END 2017-01-29 10:20 | disposition home or self-care (01) ==
LOC: EC 08:19
DX: N31.9 Neuromuscular dysfunction of bladder, unspecified (principal); K59.09 Other constipation; F32.9 Major depressive disorder, single episode, unspecified; F41.9 Anxiety disorder, unspecified; Z79.899 Other long term (current) drug therapy
CPT/HCPCS: 51798; 81001; 99284

== ENCOUNTER 2017-02-26 17:17 | Observation (INO) | payer BC ==
[2017-02-26] MEDS ORDERED: ONDANSETRON 4 MG/2 ML VIAL IVP STA (19:18)
[2017-02-26] MEDS ORDERED: MORPHINE SULFATE 5 MG/ML SYRINGE IV STA (19:18)
[2017-02-26] MEDS ORDERED: SODIUM CHLORIDE 0.9% 1,000 ML IV STA ×2 (19:18→21:47)
[2017-02-26] MEDS ORDERED: KETOROLAC 30 MG/ML 1 ML VIAL IVP STA (19:18)
[2017-02-26] MEDS ORDERED: PANTOPRAZOLE 40 MG/10 ML VIAL IVP STA (19:18)
[2017-02-26 19:46] LABS: Basophils % (A) 0 %; Eosinophils # (A) 0.1 k/uL (0-0.7); Eosinophils % (A) 1 %; HCT 44.3 % (34.0-46.0); HGB 14.4 gm/dL (11.4-16.0); Lymphocytes # (A) 2.1 k/uL (1.0-4.8); Lymphocytes % (A) 28 %; MCH 29.7 pg (25.0-35.0); MCHC 32.4 g/dL (31.0-37.0); MCV 91.7 fL (80.0-100.0); Mean Platelet Volume 7.2; Monocytes # (A) 0.4 k/uL (0-1.0); Monocytes % (A) 6 %; Neutrophils # (A) 4.7 k/uL (1.3-7.7); Neutrophils % (A) 63 %; Platelet Count 255 k/uL (150-450); RBC 4.83 m/uL (3.80-5.40); RDW 14.4 % (11.5-15.5); WBC 7.5 k/uL (3.8-10.6)
--- NOTE | 2017-02-26 19:48 | ED ---
General Adult HPI - General Chief complaint: Abdominal Pain Stated complaint: gallbladder pain, nausea Time Seen by Provider: 02/26/17 18:55 Source: patient Mode of arrival: ambulatory Limitations: no limitations - History of Present Illness Initial comments: This is a 2-year-old female to the ER for evaluation. This patient presents today for evaluation regarding abdominal pain. Patient has severe epigastric right upper quadrant abdominal pain. Patient is no history of abdominal surgeries no history of gallbladder disease. Mild nausea no vomiting. No fevers. Multiple bouts of similar symptoms in the past but no need to come to emergency room. No modifying factors repair at this time. Pain is severe, does relapsing remitting - Related Data Home Medications Medication Instructions Recorded Confirmed lamoTRIgine [LaMICtal] 200 mg PO BID@1200,1800 09/22/15 02/26/17 ALPRAZolam [Xanax] 0.5 mg PO DAILY PRN 08/05/16 02/26/17 Multivit with Calcium,Iron,Min 1 tab PO DAILY@1200 08/05/16 02/26/17 [Women's Multivitamin] Atorvastatin [Lipitor] 20 mg PO DAILY@1200 01/29/17 02/26/17 FLUoxetine HCL [PROzac] 40 mg PO DAILY@1200 01/29/17 02/26/17 Prazosin HCl [Minipress] 2 mg PO HS 01/29/17 02/26/17 Venlafaxine HCl [Effexor XR] 150 mg PO DAILY@1200 01/29/17 02/26/17 Sennosides/Docusate Sodium [Renetta 6 tab PO HS 02/26/17 02/26/17 Colace] Allergies Allergy/AdvReac Type Severity Reaction Status Date / Time SURGICAL TAPE Allergy Blisters Uncoded 02/26/17 19:21 Review of Systems ROS Statement: Those systems with pertinent positive or pertinent negative responses have been documented in the HPI. ROS Other: All systems not noted in ROS Statement are negative. Past Medical History Past Medical History: Pneumonia History of Any Multi-Drug Resistant Organisms: None Reported Past Surgical History: Hysterectomy, Orthopedic Surgery Additional Past Surgical History / Comment(s): hand right Past Anesthesia/Blood Transfusion Reactions: No Reported Reaction Past Psychological History: Anxiety, Depression Smoking Status: Never smoker Past Alcohol Use History: None Reported Past Drug Use History: None Reported - Past Family History Father Family Medical History: Congestive Heart Failure (CHF) General Exam Limitations: no limitations General appearance: alert, in no apparent distress, obese Head exam: Present: atraumatic, normocephalic, normal inspection Eye exam: Present: normal appearance, PERRL, EOMI. Absent: scleral icterus, conjunctival injection, periorbital swelling ENT exam: Present: normal exam, mucous membranes moist Neck exam: Present: normal inspection. Absent: tenderness, meningismus, lymphadenopathy Respiratory exam: Present: normal lung sounds bilaterally. Absent: respiratory distress, wheezes, rales, rhonchi, stridor Cardiovascular Exam: Present: regular rate, normal rhythm, normal heart sounds. Absent: systolic murmur, diastolic murmur, rubs, gallop, clicks GI/Abdominal exam: Present: soft, tenderness (Right upper quadrant), guarding, normal bowel sounds. Absent: distended, rebound, rigid Extremities exam: Present: normal inspection, full ROM, normal capillary refill. Absent: tenderness, pedal edema, joint swelling, calf tenderness Back exam: Present: normal inspection Neurological exam: Present: alert, oriented X3, CN II-XII intact Psychiatric exam: Present: normal affect, normal mood Skin exam: Present: warm, dry, intact, normal color. Absent: rash Course Vital Signs 02/26/17 02/26/17 17:52 21:25 Temperature 97.4 F L 97.1 F L Pulse Rate 80 89 Respiratory 18 17 Rate Blood Pressure 126/77 128/62 O2 Sat by Pulse 100 98 Oximetry - Reevaluation(s) Reevaluation #1: 02/26/17 21:54 Patient is for pain control Medical Decision Making - Medical Decision Making 28 year with positive eye Oswald all pain, cholelithiasis on ultrasound, elevated AST ALT and lipase. Patient be admitted for surgical evaluation and consultation - Lab Data Result diagrams: 02/26/17 18:59 02/26/17 18:59 Lab Results 02/26/17 02/26/17 02/26/17 Range/Units 18:59 18:59 20:33 WBC 7.5 (3.8-10.6) k/uL RBC 4.83 (3.80-5.40) m/uL Hgb 14.4 (11.4-16.0) gm/dL Hct 44.3 (34.0-46.0) % MCV 91.7 (80.0-100.0) fL MCH 29.7 (25.0-35.0) pg MCHC 32.4 (31.0-37.0) g/dL RDW 14.4 (11.5-15.5) % Plt Count 255 (150-450) k/uL Neutrophils % 63 % Lymphocytes % 28 % Monocytes % 6 % Eosinophils % 1 % Basophils % 0 % Neutrophils # 4.7 (1.3-7.7) k/uL Lymphocytes # 2.1 (1.0-4.8) k/uL Monocytes # 0.4 (0-1.0) k/uL Eosinophils # 0.1 (0-0.7) k/uL Basophils # 0.0 (0-0.2) k/uL Sodium 139 (137-145) mmol/L Potassium 4.5 (3.5-5.1) mmol/L Chloride 106 (98-107) mmol/L Carbon Dioxide 24 (22-30) mmol/L Anion Gap 9 mmol/L BUN 13 (7-17) mg/dL Creatinine 0.81 (0.52-1.04) mg/dL Est GFR (MDRD) Af Amer >60 (>60 ml/min/1.73 sqM) Est GFR (MDRD) Non-Af >60 (>60 ml/min/1.73 sqM) Glucose 89 (74-99) mg/dL Calcium 10.4 H (8.4-10.2) mg/dL Total Bilirubin 0.4 (0.2-1.3) mg/dL AST 161 H (14-36) U/L ALT 100 H (9-52) U/L Alkaline Phosphatase 72 (38-126) U/L Total Protein 7.7 (6.3-8.2) g/dL Albumin 4.6 (3.5-5.0) g/dL Amylase 87 (30-110) U/L Lipase 318 H (23-300) U/L Urine Color Urine Appearance (Clear) Urine pH (5.0-8.0) Ur Specific [place] (1.001-1.035) Urine Protein (Negative) Urine Glucose (UA) (Negative) Urine Ketones (Negative) Urine Blood (Negative) Urine Nitrite (Negative) Urine Bilirubin (Negative) Urine Urobilinogen (<2.0) mg/dL Ur Leukocyte Esterase (Negative) Urine HCG, Qual Not Detected (Not Detectd) 02/26/17 Range/Units 20:33 WBC (3.8-10.6) k/uL RBC (3.80-5.40) m/uL Hgb (11.4-16.0) gm/dL Hct (34.0-46.0) % MCV (80.0-100.0) fL MCH (25.0-35.0) pg MCHC (31.0-37.0) g/dL RDW (11.5-15.5) % Plt Count (150-450) k/uL Neutrophils % % Lymphocytes % % Monocytes % % Eosinophils % % Basophils % % Neutrophils # (1.3-7.7) k/uL Lymphocytes # (1.0-4.8) k/uL Monocytes # (0-1.0) k/uL Eosinophils # (0-0.7) k/uL Basophils # (0-0.2) k/uL Sodium (137-145) mmol/L Potassium (3.5-5.1) mmol/L Chloride (98-107) mmol/L Carbon Dioxide (22-30) mmol/L Anion Gap mmol/L BUN (7-17) mg/dL Creatinine (0.52-1.04) mg/dL Est GFR (MDRD) Af Amer (>60 ml/min/1.73 sqM) Est GFR (MDRD) Non-Af (>60 ml/min/1.73 sqM) Glucose (74-99) mg/dL Calcium (8.4-10.2) mg/dL Total Bilirubin (0.2-1.3) mg/dL AST (14-36) U/L ALT (9-52) U/L Alkaline Phosphatase (38-126) U/L Total Protein (6.3-8.2) g/dL Albumin (3.5-5.0) g/dL Amylase (30-110) U/L Lipase (23-300) U/L Urine Color Light Yellow Urine Appearance Clear (Clear) Urine pH 8.0 (5.0-8.0) Ur Specific [place] 1.008 (1.001-1.035) Urine Protein Negative (Negative) Urine Glucose (UA) Negative (Negative) Urine Ketones Negative (Negative) Urine Blood Negative (Negative) Urine Nitrite Negative (Negative) Urine Bilirubin Negative (Negative) Urine Urobilinogen <2.0 (<2.0) mg/dL Ur Leukocyte Esterase Negative (Negative) Urine HCG, Qual (Not Detectd) - Radiology Data Radiology results: report reviewed (Ultrasound gallbladder positive cholelithiasis), image reviewed Disposition Clinical Impression: Abdominal pain, Cholecystitis, Cholelithiasis Disposition: ADMITTED IP TO THIS [facility] Condition: Good Referrals: Parish Moreno DO [Primary Care Provider] - 1-2 days
[2017-02-26 19:58] LABS: ALT 100 U/L (9-52); AST 161 U/L (14-36); Albumin 4.6 g/dL (3.5-5.0); Alkaline Phosphatase 72 U/L (38-126); Amylase 87 U/L (30-110); Anion Gap 9 mmol/L; Blood Urea Nitrogen 13 mg/dL (7-17); Calcium 10.4 mg/dL (8.4-10.2); Carbon Dioxide 24 mmol/L (22-30); Chloride 106 mmol/L (98-107); Glucose 89 mg/dL (74-99); Lipase 318 U/L (23-300); Potassium 4.5 mmol/L (3.5-5.1); Sodium 139 mmol/L (137-145); Total Bilirubin 0.4 mg/dL (0.2-1.3); Total Protein 7.7 g/dL (6.3-8.2)
[2017-02-26 20:48] LABS: Appearance,Urine Clear (Clear); Bilirubin,Urine Negative (Negative); Blood,Urine Negative (Negative); Color,Urine Light Yellow; Glucose,Urine (UA) Negative (Negative); Ketones,Urine Negative (Negative); Leukocyte Esterase,Urine Negative (Negative); Nitrite,Urine Negative (Negative); Protein,Urine Negative (Negative); Specific Gravity,Urine 1.008 (1.001-1.035); Urobilinogen,Urine <2.0 mg/dL (<2.0)
--- NOTE | 2017-02-26 20:48 | US ---
EXAMINATION TYPE: US gallbladder DATE OF EXAM: 02/26/2017 COMPARISON: NONE CLINICAL HISTORY: Pain. RUQ pain nausea EXAM MEASUREMENTS: Liver Length: 15.1 cm Gallbladder Wall: 0.34 cm CBD: 0.5 cm Right Kidney: 11.0 x 3.8 x 4.4 cm Pancreas: Obscured by bowel gas Liver: Increased attenuation Gallbladder: Echogenic foci visualized with shadowing Technologist reported evidence for sonographic Manning's sign: Yes CBD: wnl Right Kidney: Mild to moderate hydronephrosis visualized LIMITATION: Exam limitation due to overlying bowel gas and body habitus. IMPRESSION: CHOLELITHIASIS DOCUMENTED, OCCUPYING HALF OF THE GALLBLADDER LUMEN.
[2017-02-26] MEDS ORDERED: AMPICILLIN-SULBACTAM 3 GM in SODIUM CHLORIDE 0.9% 100 ML IVPB STA (20:53)
[2017-02-26] MEDS ORDERED: SODIUM CHLORIDE 0.9% 1,000 ML IV ONE (21:47)
[2017-02-26] MEDS ORDERED: MORPHINE SULFATE 5 MG/ML SYRINGE IVP PRN (21:47)
[2017-02-26] MEDS ORDERED: ONDANSETRON 4 MG/2 ML VIAL IVP PRN (21:47)
[2017-02-26 23:39] VITALS: BMI 31.7
[2017-02-27] MEDS: AMPICILLIN-SULBACTAM 3 GM in SODIUM CHLORIDE 0.9% 100 ML IVPB SCH ×3 (04:33→15:07)
[2017-02-27 08:15] VITALS: BP 131/77; PULSE 72; RESP 21; TEMP 98.3
[2017-02-27] MEDS ORDERED: PANTOPRAZOLE 40 MG/10 ML VIAL IVP SCH (09:00)
--- NOTE | 2017-02-27 14:42 | P.GSHP ---
History of Present Illness H&P Date: 02/27/17 Chief Complaint: mid- epigastric right upper quadrant abdominal pain The patient is a 36-year-old white female who presented to the emergency room with a complaint of midepigastric abdominal discomfort. She states she has had intermittent attacks of the pain since this summer. They have become more frequent over the past month. She states that the night before she ate cheesecake and lemon pie and then with midepigastric and right upper quadrant pain. The patient states that the pain recurred several times and therefore she came to the emergency room. At this time she is not complaining of abdominal pain. The patient's pain is located in the midepigastric and right upper quadrant areas. The pain is intermittent but sharp when it occurs. She cannot associate this with any specific foods that she eats. Distal ultrasound appeared to be consistent with gallstones, however there is no wall thickening or dilatation of the common bile duct. Her lipase is minimally elevated at 318 and ALT 100, and AST 161. Past surgical history: 1. Exploratory laparotomy for endometriosis 2. Hysterectomy left ovary was remains 3. Left wrist surgery Past medical history: 1. Anxiety/depression 2. High cholesterol 3. 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 Review of systems: HEENT: Wears glasses Lungs: She does not smoke and does not have asthma or COPD Heart: Negative GI: As above : Endometriosis status post hysterectomy - Constitutional Constitutional: Reports as per HPI - Cardiovascular Cardiovascular: Reports as per HPI - Respiratory Respiratory: Reports as per HPI - Gastrointestinal Gastrointestinal: Reports as per HPI - Genitourinary (Female) Genitourinary: Reports as per HPI - Genitourinary (Male) Genitourinary: Reports as per HPI - Psychiatric Psychiatric: Reports as per HPI, Reports anxiety, Reports depression Past Medical History Past Medical History: Pneumonia History of Any Multi-Drug Resistant Organisms: None Reported Past Surgical History: Hysterectomy, Orthopedic Surgery Additional Past Surgical History / Comment(s): left right Past Anesthesia/Blood Transfusion Reactions: No Reported Reaction Past Psychological History: Anxiety, Depression Smoking Status: Never smoker Past Alcohol Use History: None Reported Past Drug Use History: None Reported - Past Family History Father Family Medical History: Congestive Heart Failure (CHF) Medications and Allergies Home Medications Medication Instructions Recorded Confirmed Type lamoTRIgine [LaMICtal] 200 mg PO BID@1200,1800 09/22/15 02/26/17 History ALPRAZolam [Xanax] 0.5 mg PO DAILY PRN 08/05/16 02/26/17 History Multivit with Calcium,Iron,Min 1 tab PO DAILY@1200 08/05/16 02/26/17 History [Women's Multivitamin] Atorvastatin [Lipitor] 20 mg PO DAILY@1200 01/29/17 02/26/17 History FLUoxetine HCL [PROzac] 40 mg PO DAILY@1200 01/29/17 02/26/17 History Prazosin HCl [Minipress] 2 mg PO HS 01/29/17 02/26/17 History Venlafaxine HCl [Effexor XR] 150 mg PO DAILY@1200 01/29/17 02/26/17 History Sennosides/Docusate Sodium [Renetta 6 tab PO HS 02/26/17 02/26/17 History Colace] Allergies Allergy/AdvReac Type Severity Reaction Status Date / Time SURGICAL TAPE Allergy Blisters Uncoded 02/26/17 19:21 Surgical - Exam Vital Signs Temp Pulse Resp BP Pulse Ox 97.4 F L 80 18 126/77 100 02/26/17 17:52 02/26/17 17:52 02/26/17 17:52 02/26/17 17:52 02/26/17 17:52 - General well developed, obese - Eyes normal ocular movement - ENT normal pinna, normal nares, no hearing loss - Neck no masses, trachea midline, no lymphadectomy, no venous distension - Respiratory normal expansion, normal respiratory effort, clear to auscultation - Cardiovascular Rhythm: regular Heart Sounds: normal: S1, S2 - Abdomen Mild tender midepigastric and right upper quadrant areas Abdomen: soft Hernia: none - Neurologic normal coordination - Psychiatric oriented to time, oriented to person, oriented to place, speech is normal Results - Labs 02/26/17 18:59 02/26/17 18:59 Abnormal Lab Results - Last 24 Hours (Table) 02/26/17 Range/Units 18:59 Calcium 10.4 H (8.4-10.2) mg/dL AST 161 H (14-36) U/L ALT 100 H (9-52) U/L Lipase 318 H (23-300) U/L Microbiology - Last 24 Hours (Table) 02/26/17 20:33 Urine Culture - Preliminary Urine,Voided Diabetes panel 02/26/17 Range/Units 18:59 Sodium 139 (137-145) mmol/L Potassium 4.5 (3.5-5.1) mmol/L Chloride 106 (98-107) mmol/L Carbon Dioxide 24 (22-30) mmol/L BUN 13 (7-17) mg/dL Creatinine 0.81 (0.52-1.04) mg/dL Glucose 89 (74-99) mg/dL Calcium 10.4 H (8.4-10.2) mg/dL AST 161 H (14-36) U/L ALT 100 H (9-52) U/L Alkaline Phosphatase 72 (38-126) U/L Total Protein 7.7 (6.3-8.2) g/dL Albumin 4.6 (3.5-5.0) g/dL Calcium panel 02/26/17 Range/Units 18:59 Calcium 10.4 H (8.4-10.2) mg/dL Albumin 4.6 (3.5-5.0) g/dL Pituitary panel 02/26/17 Range/Units 18:59 Sodium 139 (137-145) mmol/L Potassium 4.5 (3.5-5.1) mmol/L Chloride 106 (98-107) mmol/L Carbon Dioxide 24 (22-30) mmol/L BUN 13 (7-17) mg/dL Creatinine 0.81 (0.52-1.04) mg/dL Glucose 89 (74-99) mg/dL Calcium 10.4 H (8.4-10.2) mg/dL Adrenal panel 02/26/17 Range/Units 18:59 Sodium 139 (137-145) mmol/L Potassium 4.5 (3.5-5.1) mmol/L Chloride 106 (98-107) mmol/L Carbon Dioxide 24 (22-30) mmol/L BUN 13 (7-17) mg/dL Creatinine 0.81 (0.52-1.04) mg/dL Glucose 89 (74-99) mg/dL Calcium 10.4 H (8.4-10.2) mg/dL Total Bilirubin 0.4 (0.2-1.3) mg/dL AST 161 H (14-36) U/L ALT 100 H (9-52) U/L Alkaline Phosphatase 72 (38-126) U/L Total Protein 7.7 (6.3-8.2) g/dL Albumin 4.6 (3.5-5.0) g/dL - Imaging US - abdomen: report reviewed, image reviewed (Positive for gallstones, no wall thickening) Assessment and Plan Assessment: Impression/plan: 1. Midepigastric right upper quadrant abdominal pain 2. Elevated liver function studies 3. Mildly elevated lipase 4. Anxiety/depression Plan: 1. Laparoscopic possible open cholecystectomy in near future patient understands risks and benefits and wishes to proceed
--- NOTE | 2017-02-27 14:51 | US ---
EXAMINATION TYPE: US gallbladder DATE OF EXAM: 02/27/2017 COMPARISON: NONE CLINICAL HISTORY: stones. EXAM MEASUREMENTS: Within the left hepatic lobe there is a simple appearing anechoic 3.1 x 2.4 x 2.0 cm hepatic cyst wit h increased through transmission. The gallbladder contains mobile echogenic shadowing gallstones but is without gallbladder wall thicke kiran (3 mm) or common bile duct dilation (0.45 mm). No pericholecystic fluid or gallbladder elongatio n is seen. Incidentally there is hypervascular flow of the right renal cortex, an incidental finding of undeterm ined significance. No focal lesion is identified. IMPRESSION: 1. Cholelithiasis without sonographic evidence of acute cholecystitis. 2. Simple hepatic cyst.
[2017-02-27] MEDS ORDERED: HEPARIN SODIUM,PORCINE 5,000 UNIT/ML 1 ML VIAL SQ ONE (15:00)
--- NOTE | 2017-02-27 16:58 | P.PN ---
Progress Note - Text I was called to talk to the patient and her regarding the delay in operative intervention. She is very hungry and is frustrated and at this point she wishes to be discharged home to have her surgery done electively as an outpatient. At this time she has no abdominal pain. Her abdomen is soft. I discussed with her the risks and benefits of delaying cholecystectomy,, however she is quite adamant about being discharged home. She and her both understand that she could have another attack of cholecystitis and additionally if she did pass a stone it could cause pancreatitis or complications. Despite this she wishes to be discharged home. Therefore the patient is going to be discharged home and followed as an outpatient and scheduled for elective cholecystectomy.
--- NOTE | 2017-02-27 17:03 | P.DS ---
Providers Date of admission: 02/26/17 21:47 Attending physician: Shu Yuan Primary care physician: [facility] Course: Patient is a 36-year-old white female admitted with midepigastric right upper quadrant abdominal discomfort. She has been having intermittent symptoms for approximately 9 months. This became more pronounced last night and she presented to the emergency room. At this time her symptoms have completely resolved. Although she was initially scheduled for laparoscopic possible open cholecystectomy she does not wish to wait for the operative time any longer. She is quite adamant about being discharged home. She understands the risks and benefits of delaying her surgery and wishes to wait. She is therefore being discharged home to be followed as an outpatient. Patient Condition at Discharge: Good Plan - Discharge Summary New Discharge Prescriptions: No Action lamoTRIgine [LaMICtal] 200 mg PO BID@1200,1800 ALPRAZolam [Xanax] 0.5 mg PO DAILY PRN PRN Reason: Anxiety Multivit with Calcium,Iron,Min [Women's Multivitamin] 1 tab PO DAILY@1200 Prazosin HCl [Minipress] 2 mg PO HS FLUoxetine HCL [PROzac] 40 mg PO DAILY@1200 Venlafaxine HCl [Effexor XR] 150 mg PO DAILY@1200 Atorvastatin [Lipitor] 20 mg PO DAILY@1200 Sennosides/Docusate Sodium [Renetta Colace] 6 tab PO HS Discharge Medication List lamoTRIgine [LaMICtal] 200 mg PO BID@1200,1800 09/22/15 [History] ALPRAZolam [Xanax] 0.5 mg PO DAILY PRN 08/05/16 [History] Multivit with Calcium,Iron,Min [Women's Multivitamin] 1 tab PO DAILY@1200 [History] Atorvastatin [Lipitor] 20 mg PO DAILY@1200 01/29/17 [History] FLUoxetine HCL [PROzac] 40 mg PO DAILY@1200 01/29/17 [History] Prazosin HCl [Minipress] 2 mg PO HS 01/29/17 [History] Venlafaxine HCl [Effexor XR] 150 mg PO DAILY@1200 01/29/17 [History] Sennosides/Docusate Sodium [Renetta Colace] 6 tab PO HS 02/26/17 [History] Follow up Appointment(s)/Referral(s): Shu Yuan MD [STAFF PHYSICIAN] - 03/13/17 10:15 am Parish Moreno DO [Primary Care Provider] - 1-2 days Activity/Diet/Wound Care/Special Instructions: bland diet Discharge Disposition: HOME SELF-CARE
== END 2017-02-27 17:20 | disposition home or self-care (01) ==
LOC: EC 17:17 → 3SUR 21:47
PROVIDERS: ADMIT Surgery; ATTEND Surgery
DX: K80.10 Calculus of gallbladder with chronic cholecystitis without obstruction (principal); F41.9 Anxiety disorder, unspecified; F32.9 Major depressive disorder, single episode, unspecified; E78.00 Pure hypercholesterolemia, unspecified; Q04.8 Other specified congenital malformations of brain; R74.8 Abnormal levels of other serum enzymes; R94.5 Abnormal results of liver function studies; Z79.899 Other long term (current) drug therapy; Z91.048 Other nonmedicinal substance allergy status; Z90.710 Acquired absence of both cervix and uterus; Z82.49 Family history of ischemic heart disease and other diseases of the circulatory system
CPT/HCPCS: 96376; 96361 ×3; 96366; 96365; 96375; 99285; 36415; 80053; 82150; 83690; 85025; 81003; 81025; 87086; 76705 ×2; G0378 ×2; J2405; J1885; J0295 ×2; C9113 ×2; J2274

== ENCOUNTER 2019-04-13 19:29 | Emergency (ER) | payer BC ==
[2019-04-13] MEDS ORDERED: SODIUM CHLORIDE 0.9% 1,000 ML IV STA (20:15)
[2019-04-13] MEDS ORDERED: PANTOPRAZOLE 40 MG/10 ML VIAL IVP STA (20:15)
[2019-04-13] MEDS ORDERED: ONDANSETRON 4 MG/2 ML VIAL IVP STA (20:15)
[2019-04-13] MEDS ORDERED: KETOROLAC 30 MG/ML 1 ML VIAL IVP STA (20:15)
--- NOTE | 2019-04-13 20:18 | ED ---
Abdominal Pain HPI - General Chief Complaint: Abdominal Pain Stated Complaint: gallbladder pain Time Seen by Provider: 04/13/19 20:02 Source: patient Mode of arrival: ambulatory Limitations: no limitations - History of Present Illness Initial Comments: Patient is a 38-year-old female presenting to emergency Department with complaints of right-sided abdominal pain. Patient states she's been having gallbladder attacks for the past couple years. Patient states her pain has increased over the past few weeks so her PCP did order an ultrasound today. She states after the ultrasound she's been having increase in pain. Patient states she did have dinner tonight and then now the pain is even worse. She states she feels nauseous. She denies any fever, vomiting, diarrhea, chest pain, she said breath. She admits to hysterectomy, laparotomy, no other abdominal surgeries. She has no other complaints at this time. Upon arrival to the ER vitals are stable. - Related Data Home Medications Medication Instructions Recorded Confirmed lamoTRIgine [LaMICtal] 200 mg PO BID@1200,1800 09/22/15 02/26/17 ALPRAZolam [Xanax] 0.5 mg PO DAILY PRN 08/05/16 02/26/17 Multivit with Calcium,Iron,Min 1 tab PO DAILY@1200 08/05/16 02/26/17 [Women's Multivitamin] Atorvastatin [Lipitor] 20 mg PO DAILY@1200 01/29/17 02/26/17 FLUoxetine HCL [PROzac] 40 mg PO DAILY@1200 01/29/17 02/26/17 Prazosin HCl [Minipress] 2 mg PO HS 01/29/17 02/26/17 Venlafaxine HCl [Effexor XR] 150 mg PO DAILY@1200 01/29/17 02/26/17 Sennosides/Docusate Sodium [Renetta 6 tab PO HS 02/26/17 02/26/17 Colace] Previous Rx's Medication Instructions Recorded Ketorolac [Toradol] 10 mg PO Q8HR #10 tab 04/13/19 Allergies Allergy/AdvReac Type Severity Reaction Status Date / Time SURGICAL TAPE Allergy Blisters Uncoded 02/26/17 19:21 Review of Systems ROS Statement: Those systems with pertinent positive or pertinent negative responses have been documented in the HPI. ROS Other: All systems not noted in ROS Statement are negative. Past Medical History Past Medical History: Pneumonia History of Any Multi-Drug Resistant Organisms: None Reported Past Surgical History: Hysterectomy, Orthopedic Surgery Additional Past Surgical History / Comment(s): left right Past Anesthesia/Blood Transfusion Reactions: No Reported Reaction Past Psychological History: Anxiety, Depression Smoking Status: Never smoker Past Alcohol Use History: None Reported Past Drug Use History: None Reported - Past Family History Father Family Medical History: Congestive Heart Failure (CHF) General Exam - General Exam Comments Initial Comments: GENERAL: Well-appearing, well-nourished and in no acute distress. HEAD: Atraumatic, normocephalic. EYES: Pupils equal round and reactive to light, extraocular movements intact, sclera anicteric, conjunctiva are normal. ENT: TMs normal, nares patent, oropharynx clear without exudates. Moist mucous membranes. NECK: Normal range of motion, supple without lymphadenopathy or JVD. LUNGS: Breath sounds clear to auscultation bilaterally and equal. No wheezes rales or rhonchi. HEART: Regular rate and rhythm without murmurs, rubs or gallops. ABDOMEN: Tender to palpation epigastric and upper right quadrant. Soft, normoactive bowel sounds. No guarding, no rebound. No masses appreciated. : Deferred EXTREMITIES: Normal range of motion, no pitting or edema. No clubbing or cyanosis. NEUROLOGICAL: Normal speech, normal gait. PSYCH: Normal mood, normal affect. SKIN: Warm, Dry, normal turgor, no rashes or lesions noted. Limitations: no limitations Course Vital Signs 04/13/19 04/13/19 19:34 22:04 Temperature 98.7 F 98.2 F Pulse Rate 84 57 L Respiratory 20 18 Rate Blood Pressure 132/84 124/82 O2 Sat by Pulse 100 97 Oximetry Medical Decision Making - Medical Decision Making Patient is a 2-year-old female presenting with right upper quadrant pain. She did have an outpatient ultrasound today ordered by her PCP. She's been having issues with her gallbladder for years. Vitals are stable today. Ultrasound reveals gallstones, common bile duct is within normal limits and acute cholecy stitis is not suspected at this time. Patient's lab work and urine is unremarkable. Bilirubin is normal. Patient was given fluids and pain control. She reports improvement in her symptoms. I discussed these findings with the patient. Patient will be given referral to surgery. She is requesting two referrals secondary to being able to get in sooner. Patient will be sent home with Toradol for pain relief. She is in agreement with this plan of care. Return parameters were discussed with the patient she verbalized understanding. - Lab Data Result diagrams: 04/13/19 20:50 04/13/19 20:50 Lab Results 04/13/19 04/13/19 04/13/19 Range/Units 20:30 20:50 20:50 WBC 5.3 (3.8-10.6) k/uL RBC 4.81 (3.80-5.40) m/uL Hgb 14.5 (11.4-16.0) gm/dL Hct 42.5 (34.0-46.0) % MCV 88.3 (80.0-100.0) fL MCH 30.2 (25.0-35.0) pg MCHC 34.2 (31.0-37.0) g/dL RDW 12.5 (11.5-15.5) % Plt Count 253 (150-450) k/uL Neutrophils % 56 % Lymphocytes % 34 % Monocytes % 4 % Eosinophils % 2 % Basophils % 1 % Neutrophils # 3.0 (1.3-7.7) k/uL Lymphocytes # 1.8 (1.0-4.8) k/uL Monocytes # 0.2 (0-1.0) k/uL Eosinophils # 0.1 (0-0.7) k/uL Basophils # 0.0 (0-0.2) k/uL Sodium 137 (137-145) mmol/L Potassium 4.6 (3.5-5.1) mmol/L Chloride 103 (98-107) mmol/L Carbon Dioxide 28 (22-30) mmol/L Anion Gap 6 mmol/L BUN 20 H (7-17) mg/dL Creatinine 0.78 (0.52-1.04) mg/dL Est GFR (CKD-EPI)AfAm >90 (>60 ml/min/1.73 sqM) Est GFR (CKD-EPI)NonAf >90 (>60 ml/min/1.73 sqM) Glucose 87 (74-99) mg/dL Calcium 9.5 (8.4-10.2) mg/dL Total Bilirubin 0.4 (0.2-1.3) mg/dL AST 30 (14-36) U/L ALT 28 (4-34) U/L Alkaline Phosphatase 56 (38-126) U/L Total Protein 7.4 (6.3-8.2) g/dL Albumin 4.5 (3.5-5.0) g/dL Lipase 119 (23-300) U/L Urine Color Yellow Urine Appearance Cloudy H (Clear) Urine pH 5.0 (5.0-8.0) Ur Specific [place] 1.027 (1.001-1.035) Urine Protein Negative (Negative) Urine Glucose (UA) Negative (Negative) Urine Ketones Negative (Negative) Urine Blood Negative (Negative) Urine Nitrite Negative (Negative) Urine Bilirubin Negative (Negative) Urine Urobilinogen <2.0 (<2.0) mg/dL Ur Leukocyte Esterase Moderate H (Negative) Urine RBC 1 (0-5) /hpf Urine WBC 5 (0-5) /hpf Ur Squamous Epith Cells 8 H (0-4) /hpf Urine Bacteria Rare H (None) /hpf Urine Mucus Occasional H (None) /hpf Disposition Clinical Impression: Abdominal pain, Biliary colic Disposition: HOME SELF-CARE Condition: Stable Instructions (If sedation given, give patient instructions): Biliary Colic (ED) Additional Instructions: Please return to the Emergency Department if symptoms worsen or any other concerns. Continue to monitor diet, limit fatty foods. Take Toradol or ibuprofen for pain. Prescriptions: Ketorolac [Toradol] 10 mg PO Q8HR #10 tab Is patient prescribed a controlled substance at d/c from ED?: No Referrals: Delonte Hassan MD [Primary Care Provider] - 1-2 days Aleta Triplett MD [STAFF PHYSICIAN] - 1-2 days Jostin Mehta MD [Medical Doctor] - 1-2 days
[2019-04-13 20:54] LABS: Appearance,Urine Cloudy (Clear); Bacteria,Urine Rare /hpf; Bilirubin,Urine Negative (Negative); Blood,Urine Negative (Negative); Color,Urine Yellow; Glucose,Urine (UA) Negative (Negative); Ketones,Urine Negative (Negative); Leukocyte Esterase,Urine Moderate (Negative); Mucus,Urine Occasional /hpf; Nitrite,Urine Negative (Negative); Protein,Urine Negative (Negative); RBC,Urine 1 /hpf (0-5); Specific Gravity,Urine 1.027 (1.001-1.035); Squamous Epithelial Cell,Urine 8 /hpf (0-4); Urobilinogen,Urine <2.0 mg/dL (<2.0); WBC,Urine 5 /hpf (0-5)
[2019-04-13 21:05] LABS: Basophils % (A) 1 %; Eosinophils # (A) 0.1 k/uL (0-0.7); Eosinophils % (A) 2 %; HCT 42.5 % (34.0-46.0); HGB 14.5 gm/dL (11.4-16.0); Lymphocytes # (A) 1.8 k/uL (1.0-4.8); Lymphocytes % (A) 34 %; MCH 30.2 pg (25.0-35.0); MCHC 34.2 g/dL (31.0-37.0); MCV 88.3 fL (80.0-100.0); Mean Platelet Volume 6.9; Monocytes # (A) 0.2 k/uL (0-1.0); Monocytes % (A) 4 %; Neutrophils % (A) 56 %; Platelet Count 253 k/uL (150-450); RBC 4.81 m/uL (3.80-5.40); RDW 12.5 % (11.5-15.5); WBC 5.3 k/uL (3.8-10.6)
[2019-04-13 21:14] LABS: ALT 28 U/L (4-34); AST 30 U/L (14-36); African American GFR (CKD) >90 (>60 ml/min/1.73 sqM); Albumin 4.5 g/dL (3.5-5.0); Alkaline Phosphatase 56 U/L (38-126); Anion Gap 6 mmol/L; Blood Urea Nitrogen 20 mg/dL (7-17); Calcium 9.5 mg/dL (8.4-10.2); Carbon Dioxide 28 mmol/L (22-30); Chloride 103 mmol/L (98-107); Glucose 87 mg/dL (74-99); Non-African American GFR(CKD) >90 (>60 ml/min/1.73 sqM); Potassium 4.6 mmol/L (3.5-5.1); Sodium 137 mmol/L (137-145); Total Bilirubin 0.4 mg/dL (0.2-1.3); Total Protein 7.4 g/dL (6.3-8.2)
[2019-04-13 22:05] VITALS: BP 124/82; PULSE 57; RESP 18; TEMP 98.2
== END 2019-04-13 22:05 | disposition home or self-care (01) ==
LOC: EC 19:29
DX: K80.70 Calculus of gallbladder and bile duct without cholecystitis without obstruction (principal); F32.9 Major depressive disorder, single episode, unspecified; F41.9 Anxiety disorder, unspecified; Z91.048 Other nonmedicinal substance allergy status; Z79.899 Other long term (current) drug therapy; Z90.710 Acquired absence of both cervix and uterus; Z98.890 Other specified postprocedural states
CPT/HCPCS: 36415; 80053; 83690; 85025; 81001; 99284; 96374; 96375 ×2; 96361; J2405; J1885; C9113

== ENCOUNTER → 2019-04-13 | Outpatient (CLI) | payer BC ==
--- NOTE | 2019-04-13 10:42 | US ---
EXAMINATION TYPE: US abdomen complete DATE OF EXAM: 04/13/2019 COMPARISON: US 02/27/2017 CLINICAL HISTORY: R10.9 Abdominal Pain. Epigastric pain after meals per patient. EXAM MEASUREMENTS: Liver Length: 14.0 cm Gallbladder Wall: 0.3 cm CBD: 0.4 cm Spleen: 9.5 cm Right Kidney: 10.1 x 5.0 x 4.0 cm Left Kidney: 11.8 x 5.2 x 5.6 cm Pancreas: wnl Liver: liver cyst seen right lobe = 2.45 x 3.2 x 1.4cm . This previously measured 3.1 x 2.4 x 2.0 cm on the exam of ca 02/27/2017 Gallbladder: full of shadowing stones (RUBÉN sign- Wall, echo, shadow sign) gallbladder wall still wnl for size Evidence for sonographic Manning's sign: yes CBD: wnl Spleen: wnl Right Kidney: Pelvocaliectasis without amy hydronephrosis. No nephrolithiasis or masses seen. Left Kidney: Pelvocaliectasis without amy hydronephrosis. No nephrolithiasis or masses seen. Upper IVC: wnl Abd Aorta: wnl IMPRESSION: 1. Gallstones fill the gallbladder and there is a positive sonographic Manning's sign however the comm on bile duct is within normal limits and acute cholecystitis is not suspected sonographically. 2. Redemonstration of a hepatic cyst.
== END | disposition home or self-care (01) ==
LOC: RADUSMAIN 08:30
PROVIDERS: ATTEND Family Medicine
DX: K80.20 Calculus of gallbladder without cholecystitis without obstruction (principal); K76.89 Other specified diseases of liver
CPT/HCPCS: 76700

== ENCOUNTER → 2019-05-13 | Day surgery (SDC) | payer BC | END | disposition home or self-care (01) | CPT/HCPCS: 47562; S2900; 88304 ==

== ENCOUNTER 2020-12-18 12:51 | Emergency (ER) | payer BC ==
[2020-12-18 13:04] VITALS: RESP 20
[2020-12-18] MEDS ORDERED: ONDANSETRON 4 MG/2 ML VIAL IVP STA (13:18)
[2020-12-18] MEDS ORDERED: SODIUM CHLORIDE 0.9% 1,000 ML IV STA (13:18)
[2020-12-18] MEDS ORDERED: KETOROLAC 15 MG/ML 1 ML VIAL IVP STA (13:18)
[2020-12-18 13:47] LABS: Basophils % (A) 1 %; Eosinophils # (A) 0.1 k/uL (0-0.7); Eosinophils % (A) 1 %; HCT 42.9 % (34.0-46.0); HGB 14.5 gm/dL (11.4-16.0); Lymphocytes # (A) 2.6 k/uL (1.0-4.8); Lymphocytes % (A) 43 %; MCH 30.1 pg (25.0-35.0); MCHC 33.9 g/dL (31.0-37.0); Mean Platelet Volume 7.7; Monocytes # (A) 0.3 k/uL (0-1.0); Monocytes % (A) 5 %; Neutrophils # (A) 2.8 k/uL (1.3-7.7); Neutrophils % (A) 47 %; Platelet Count 260 k/uL (150-450); RBC 4.83 m/uL (3.80-5.40); RDW 12.6 % (11.5-15.5); WBC 5.9 k/uL (3.8-10.6)
[2020-12-18 14:21] LABS: ALT 20 U/L (4-34); African American GFR (CKD) >90 (>60 ml/min/1.73 sqM); Albumin 4.6 g/dL (3.5-5.0); Anion Gap 13 mmol/L; Blood Urea Nitrogen 14 mg/dL (7-17); Calcium 10.3 mg/dL (8.4-10.2); Carbon Dioxide 20 mmol/L (22-30); Chloride 106 mmol/L (98-107); Glucose 105 mg/dL (74-99); Non-African American GFR(CKD) >90 (>60 ml/min/1.73 sqM); Sodium 139 mmol/L (137-145); Total Bilirubin 0.6 mg/dL (0.2-1.3); Total Protein 7.6 g/dL (6.3-8.2)
[2020-12-18 14:23] LABS: AST 33 U/L (14-36); Alkaline Phosphatase 68 U/L (38-126); Potassium 3.3 mmol/L (3.5-5.1)
--- NOTE | 2020-12-18 14:26 | CT ---
EXAMINATION TYPE: CT abdomen pelvis w con DATE OF EXAM: 12/18/2020 COMPARISON: Ultrasound 04/13/2019, 02/16/2017 HISTORY: Rt flank pain CT DLP: 1422.1 mGycm Automated exposure control for dose reduction was used. CONTRAST: CT scan of the abdomen pelvis is performed with IV Contrast, patient injected with 100 mL of Isovue 3 00. FINDINGS- LUNG BASES- No significant abnormality is appreciated. LIVER/GB-within the left lobe the liver there is a 3.3 cm low density lesion well-circumscribed measu ring 40 Hounsfield units and does not meet the criteria of a simple cyst. It has been reported by shante or ultrasounds dating back to 02/27/2017. Does appear to be mildly increased in size. Could represent a complicated cyst or hemangioma. Other etiologies are not excluded and MRI recommended.. PANCREAS- No gross abnormality is seen. SPLEEN- No gross abnormality is seen. ADRENALS- No gross abnormality is seen. KIDNEYS/BLADDER-moderate to severe right-sided hydronephrosis. There does appear to be a 1 to 2 mm ca lcification near the right UVJ. Component of congenital UPJ obstruction also in the differential diag nosis.. BOWEL-small hiatal hernia. Gas pattern nonspecific. Area of localized dilation of the sigmoid colon c ould be transient related to peristalsis correlate clinically. Retained fecal debris noted correlate for constipation.. LYMPH NODES- No greater than 1cm abdominal or pelvic lymph nodes areappreciated. OSSEOUS STRUCTURES-hypertrophic and degenerative change of the spine. OTHER- aorta of normal caliber. IMPRESSION- 1. Moderate severe right-sided hydronephrosis secondary to 1 to 2 mm right UVJ calcification. Patient did have mild hydronephrosis on more distant ultrasound suggesting there may be a component of a con genital UPJ obstruction also occurring. 2. Left lobe hepatic lesion is increased in size from prior surround and does not meet the criteria o f a simple cyst. Complicated cyst or hemangioma in the differential diagnosis. Suspect a benign etiol ogy, although, other etiologies are not entirely excluded and given the increase in size recommend fo llow-up MRI.
--- NOTE | 2020-12-18 14:38 | ED ---
Back Pain HPI - General Chief Complaint: Back Pain/Injury Stated Complaint: back pain Time Seen by Provider: 12/18/20 13:12 Source: patient, EMS, RN notes reviewed Limitations: no limitations - History of Present Illness Initial Comments: Patient is a 40-year-old female that presents to the emergency department complaining of right-sided mid back pain. She notes she bent over to grab a laundry felt a sharp pain in her back and came emergency. She notes that she does have a history of kidney issues. She notes is not muscular. Patient notes that the pain is approximately 10 out of 10 with no relief from at home medications. She did appear to be in moderate distress. She denied any chest pain short of breath headache nausea vomiting diarrhea constipation fever fatigu e chills. - Related Data Home Medications Medication Instructions Recorded Confirmed lamoTRIgine [LaMICtal] 100 mg PO BID 09/22/15 05/11/19 ALPRAZolam [Xanax] 0.5 mg PO DAILY PRN 08/05/16 05/13/19 Multivit with Calcium,Iron,Min 1 tab PO DAILY@1200 08/05/16 05/11/19 [Women's Multivitamin] Venlafaxine HCl [Effexor XR] 150 mg PO DAILY@1200 01/29/17 05/11/19 Sennosides/Docusate Sodium [Renetta 6 tab PO HS 02/26/17 05/13/19 Colace] Biotin (Unknown Dose) 1 tab PO DAILY 05/11/19 traZODone HCL 150 mg PO HS 05/11/19 05/13/19 Previous Rx's Medication Instructions Recorded Acetaminophen Tab [Tylenol Tab] 1,000 mg PO Q6HR PRN #30 tablet 05/13/19 Ibuprofen [Motrin] 600 mg PO Q8HR PRN #30 tab 05/13/19 Ketorolac [Toradol] 10 mg PO Q8HR #15 tab 12/18/20 Tamsulosin [Flomax] 0.4 mg PO DAILY #7 cap 12/18/20 Allergies Allergy/AdvReac Type Severity Reaction Status Date / Time SURGICAL TAPE Allergy Blisters Uncoded 12/18/20 12:59 Review of Systems ROS Statement: Those systems with pertinent positive or pertinent negative responses have been documented in the HPI. ROS Other: All systems not noted in ROS Statement are negative. Past Medical History Past Medical History: Hyperlipidemia, Pneumonia Additional Past Medical History / Comment(s): Has cavernomas of brain, "rare genetic disorder." Hx retinal tears. "Borderline low thyroid." Gallstones, liver enzymes elevated History of Any Multi-Drug Resistant Organisms: None Reported Past Surgical History: Hysterectomy, Orthopedic Surgery Additional Past Surgical History / Comment(s): Left wrist tendonitis. Ex ploratory laparoscopy (endometriosis). Past Anesthesia/Blood Transfusion Reactions: No Reported Reaction Past Psychological History: Anxiety, Depression Smoking Status: Never smoker Past Alcohol Use History: None Reported Past Drug Use History: None Reported - Past Family History Father Family Medical History: Congestive Heart Failure (CHF) General Exam Limitations: no limitations General appearance: alert, in no apparent distress Head exam: Present: atraumatic, normocephalic, normal inspection Eye exam: Present: normal appearance, PERRL, EOMI. Absent: scleral icterus, conjunctival injection, periorbital swelling ENT exam: Present: normal exam, mucous membranes moist Neck exam: Present: normal inspection Respiratory exam: Present: normal lung sounds bilaterally. Absent: respiratory distress, wheezes, rales, rhonchi, stridor Cardiovascular Exam: Present: regular rate, normal rhythm, normal heart sounds. Absent: systolic murmur, diastolic murmur, rubs, gallop, clicks GI/Abdominal exam: Present: soft, normal bowel sounds. Absent: distended, tenderness, guarding, rebound, rigid Extremities exam: Present: normal inspection, full ROM, normal capillary refill. Absent: tenderness, pedal edema, joint swelling, calf tenderness Back exam: Present: normal inspection, CVA tenderness (R) Neurological exam: Present: alert, oriented X3 Psychiatric exam: Present: normal affect, normal mood Skin exam: Present: warm, dry, intact, normal color. Absent: rash Course Vital Signs 12/18/20 12:59 Temperature 97.0 F L Pulse Rate 77 Respiratory 20 Rate Blood Pressure 117/75 O2 Sat by Pulse 100 Oximetry Medical Decision Making - Medical Decision Making 1-year-old female complaining of right flank pain with CVA tenderness. Labs, 15 mg of Toradol, 4 mg of Zofran, CT the abdomen and pelvis, 1 L normal saline ordered. Labs unremarkable from baseline. CT abdomen and pelvis show a right-sided UVJ stone measuring approximately 1-2 mm stone. Patient was informed of results of imaging and labs is agreeable with discharge home with follow-up to primary care, urologist and GI. - Lab Data Result diagrams: 12/18/20 13:34 12/18/20 13:34 Lab Results 12/18/20 12/18/20 Range/Units 13:34 13:34 WBC 5.9 (3.8-10.6) k/uL RBC 4.83 (3.80-5.40) m/uL Hgb 14.5 (11.4-16.0) gm/dL Hct 42.9 (34.0-46.0) % MCV 89.0 (80.0-100.0) fL MCH 30.1 (25.0-35.0) pg MCHC 33.9 (31.0-37.0) g/dL RDW 12.6 (11.5-15.5) % Plt Count 260 (150-450) k/uL MPV 7.7 Neutrophils % 47 % Lymphocytes % 43 % Monocytes % 5 % Eosinophils % 1 % Basophils % 1 % Neutrophils # 2.8 (1.3-7.7) k/uL Lymphocytes # 2.6 (1.0-4.8) k/uL Monocytes # 0.3 (0-1.0) k/uL Eosinophils # 0.1 (0-0.7) k/uL Basophils # 0.0 (0-0.2) k/uL Sodium 139 (137-145) mmol/L Potassium 3.3 L (3.5-5.1) mmol/L Chloride 106 (98-107) mmol/L Carbon Dioxide 20 L (22-30) mmol/L Anion Gap 13 mmol/L BUN 14 (7-17) mg/dL Creatinine 0.79 (0.52-1.04) mg/dL Est GFR (CKD-EPI)AfAm >90 (>60 ml/min/1.73 sqM) Est GFR (CKD-EPI)NonAf >90 (>60 ml/min/1.73 sqM) Glucose 105 H (74-99) mg/dL Calcium 10.3 H (8.4-10.2) mg/dL Total Bilirubin 0.6 (0.2-1.3) mg/dL AST 33 (14-36) U/L ALT 20 (4-34) U/L Alkaline Phosphatase 68 (38-126) U/L Total Protein 7.6 (6.3-8.2) g/dL Albumin 4.6 (3.5-5.0) g/dL - Radiology Data Radiology results: report reviewed, image reviewed CT of the abdomen and pelvis: Moderate severe right-sided hydronephrosis secondary to 1-2 mm right UVJ calcification patient did have mild hydronephrosis on more distant ultrasound suggesting there may be a component of congenital UPJ obstruction also current. Lobe hepatic lesion is increased in size from prior surrounding and does not meet criteria of a simple cyst complicated cyst or hemangioma in the differential diagnosis. Suspect a benign etiology although other etiologies are nontender excluded given increased size recommend follow- up MRI. Disposition Clinical Impression: Right flank pain, Right nephrolithiasis Disposition: HOME SELF-CARE Condition: Stable Instructions (If sedation given, give patient instructions): Kidney Stones (ED) Additional Instructions: Please return to the Emergency Department if symptoms worsen or any other concerns. Follow-up with primary care 1-2 days. Take medication as prescribed. Increase oral fluids. Follow-up with urologist Follow-up with GI for MRI of the liver. . Is patient prescribed a controlled substance at d/c from ED?: No Referrals: Delonte Hassan MD [Primary Care Provider] - 1-2 days [place]ia Lovett MD [STAFF PHYSICIAN] - 1-2 days Bennett Kline MD [STAFF PHYSICIAN] - 1-2 days Time of Disposition: 14:38
[2020-12-18 14:47] LABS: Appearance,Urine Cloudy (Clear); Bacteria,Urine Rare /hpf; Bilirubin,Urine Negative (Negative); Blood,Urine Large (Negative); Color,Urine Yellow; Glucose,Urine (UA) Negative (Negative); Ketones,Urine Negative (Negative); Leukocyte Esterase,Urine Moderate (Negative); Mucus,Urine Few /hpf; Nitrite,Urine Negative (Negative); PH, Urine 6.5 (5.0-8.0); Protein,Urine 1+ (Negative); RBC,Urine 35 /hpf (0-5); Specific Gravity,Urine 1.038 (1.001-1.035); Squamous Epithelial Cell,Urine 9 /hpf (0-4); Urobilinogen,Urine <2.0 mg/dL (<2.0); WBC,Urine 7 /hpf (0-5)
[2020-12-18 14:56] VITALS: BP 121/76; PULSE 76; TEMP 97.5
== END 2020-12-18 14:56 | disposition home or self-care (01) ==
LOC: EC 12:51
DX: N20.0 Calculus of kidney (principal); E78.5 Hyperlipidemia, unspecified; F41.9 Anxiety disorder, unspecified; F32.9 Major depressive disorder, single episode, unspecified
CPT/HCPCS: 36415; 80053; 85025; 81001; 74177; 99284; 96374; 96375; 96361; J2405; J1885; Q9967

== ENCOUNTER → 2021-08-27 | Outpatient (CLI) | payer BC ==
--- NOTE | 2021-08-29 07:16 | MM ---
Reason for Exam: Screening (asymptomatic). Baseline mammogram. Patient History: Menarche at age 11. First Full-Term at age 22. Hysterectomy at age 30. Postmenopausal. Patient used Hormonal Contraceptives for 3 years. Risk Values: Nicole 5 year model risk: 0.6%. NCI Lifetime model risk: 8.8%. Prior Study Comparison: Patient's first Mammogram. No prior studies available for comparison. Tissue Density: The breast tissue is heterogeneously dense. This may lower the sensitivity of mammography. Findings: Analyzed By CAD. There is no suspicious group of microcalcifications or new suspicious mass in either breast. Overall Assessment: Negative, BI-RAD 1 Management: Screening Mammogram of both breasts in 1 year. A clinical breast exam by your physician is recommended on an annual basis and results should be correlated with mammographic findings. Electronically signed and approved by: Harinder Bobby M.D. Radiologis
== END | disposition home or self-care (01) ==
LOC: RADMAMWWP 13:23
PROVIDERS: ATTEND Family Medicine
DX: Z12.31 Encounter for screening mammogram for malignant neoplasm of breast (principal); Z78.0 Asymptomatic menopausal state
CPT/HCPCS: 77063; 77067

== ENCOUNTER → 2021-08-28 | Outpatient (CLI) | payer BC ==
--- NOTE | 2021-08-28 17:52 | P.PN ---
Subjective DATE: 08/28/2021 FOLLOW UP VISIT. Patient with obstructive sleep apnea hypopnea syndrome return to sleep center for follow-up visit. Recently patient had sleep study which documented obstructive sleep apnea hypopnea syndrome. Patient was initiated on PAP therapy and today is first visit after treatment was started. Patient was able to use PAP equipment every night for the whole night. The patient does not have significant problems with the mask, PAP pressure and humidification. [place] sleepiness scale is 8. I checked information from PAP unit. PAP unit pressure 5-15 average 12.3 cm H2O. Usage is 87 % for more then 4 hours, average 5 hours 39 minutes per night. Leak is 21.5 l/m, which is in acceptable range. Apnea Hypopnea Index is 6.3, which is slightly above normal. MEDICATIONS:1. Pristiq 7.5 mg once a day 2. Trazodone 200 mg once a day 3. Xanax 0.5 mg as needed During physical exam: GENERAL: A pleasant patient without any distress. VITAL SIGNS: BP 132/63, HR 83, RR 12 , weight 212.8, temperature 96.9, height 5 foot 9-1/4 inches, oxygen saturation at room air 97% . HEENT: PERRLA, EOMI.low position of soft palate, Mallapati 4 . NECK: Supple. No JVD. LUNGS: Clear to percussion and to auscultation. Good air exchange. No wheezing or rhonchi. HEART: S1, S2 regular. ABDOMEN: Soft and nontender. Slightly obese EXTREMITIES: No clubbing or cyanosis. MARKETING OPERATIONS ASSISTANT: Awake, alert, and oriented x3. No focal deficit. Impressions: 1. Obstructive sleep apnea-hypopnea syndrome. Patient demonstrated great compliance with treatment, benefiting from treatment. 2. History of twitching legs during the night possibly periodic limb movements. Home sleep apnea test which we did does not have information about blood movements. 3. History of areolar episodes of out of dream movements in the past. 4. History of posttraumatic stress disorder. 5. History of multiple cavernomas of the brain. 6. Anxiety. 7. Depression. 8. Status post cholecystectomy. 9. Status post partial hysterectomy. Plan: 1. Continue using PAP equipment every night for the whole night. 2. To change air filter at least 1-2 times per month. 3. PAP unit should stay lower then position of the head. 4. Advised patient to remove all remaining water from humidifier canister daily and make it dry after each usage. Refill canister with fresh distilled water before each usage. 5. Sleep hygiene with regular time in bed for at least 8 hours. 6. Precautions related to driving. No driving if feel any sleepiness. 7. I will maintain prescription for PAP supplies including mask, tube, filters. 8. Follow up visit in 6 months or earlier if patient has any problems. 9. Watching weight. Thank you very much for allowing me to participate in the management of your patient. Mckinley Ramirez MD, PhD, FAASM. Diplomat of [place] [employer], Sleep Medicine Board by [place] [employer] Mortgage Assistant of [facility] [place]
== END ==
LOC: SLEEP 13:17
PROVIDERS: ATTEND Internal Medicine
DX: G47.33 Obstructive sleep apnea (adult) (pediatric) (principal); F43.10 Post-traumatic stress disorder, unspecified; Z86.69 Personal history of other diseases of the nervous system and sense organs; F41.9 Anxiety disorder, unspecified; F32.A Depression, unspecified; Z90.49 Acquired absence of other specified parts of digestive tract; Z90.710 Acquired absence of both cervix and uterus; Z79.899 Other long term (current) drug therapy; Z91.048 Other nonmedicinal substance allergy status

== ENCOUNTER → 2022-03-13 | Outpatient (CLI) | payer BC ==
--- NOTE | 2022-03-13 13:39 | P.PN ---
Subjective DATE: 03/13/2022 FOLLOW UP VISIT. Patient with obstructive sleep apnea hypopnea syndrome return to sleep center for follow-up visit. Information from previous visit have been reviewed. Patient is using PAP equipment every night for the whole night, getting PAP supplies in time. The patient does not have significant problems with the mask, PAP unit and humidification. [place] sleepiness scale is 9, which is borderline. I checked information from PAP unit. PAP unit pressure 5-13, average 11.6 cm H2O. previously with a higher pressure patient experienced collection of air in the stomach area after using CPAP and pressure was decreased. Usage is 73 % of nights, average 5 hours per night. Leak is 21.1 l/m, which is in acceptable range. Apnea Hypopnea Index is 5.3, which is borderline . MEDICATIONS:1. Trazodone 200 mg once a day 2. Pristiq 50 mg twice a day During physical exam: GENERAL: A pleasant patient without any distress. VITAL SIGNS: BP 116/79, HR 73, RR 16, weight 217.6, temperature 96.6, oxygen saturation at room air 98 % . HEENT: PERRLA, EOMI.low position of soft palate, Mallapati 4 . NECK: Supple. No JVD. LUNGS: Clear to percussion and to auscultation. Good air exchange. No wheezing or rhonchi. HEART: S1, S2 regular. ABDOMEN: Soft and nontender.[] EXTREMITIES: No clubbing or cyanosis. ROLL PICKER: Awake, alert, and oriented x3. No focal deficit. Impressions: 1. Obstructive sleep apnea-hypopnea syndrome. Patient demonstrated borderline compliance with treatment, benefiting from treatment. Apnea-hypopnea index borderline, but we will not increase pressure because previously patient had symptoms of feeling air in the stomach after using CPAP and pressure was decreased. 2. History of out of dream movements during the sleep in the past. Presently rear. 3. History of posttraumatic stress disorder. 4. History of multiple carcinomas in the brain. 5. Anxiety. 6. Status post cholecystectomy []. 7. status post partial hysterectomy []. Plan: 1. Continue using PAP equipment every night for the whole night. 2. To change air filter at least 1-2 times per month. 3. PAP unit should stay lower then position of the head. 4. Advised patient to remove all remaining water from humidifier canister daily and make it dry after each usage. Refill canister with fresh distilled water before each usage. 5. Sleep hygiene with regular time in bed for at least 8 hours. 6. Precautions related to driving. No driving if feel any sleepiness. 7. I will maintain prescription for PAP supplies including mask, tube, filters. 8. Follow up visit in 6 months or earlier if patient has any problems. 9. Watching weight. Thank you very much for allowing me to participate in the management of your patient. Mckinley Ramirez MD, PhD, FAASM. Diplomat of [place] [employer] Medicine, Sleep Medicine Board by [place] [employer] Internal Medicine Combine Mechanic of [facility] [place]
== END ==
LOC: SLEEP 12:58
PROVIDERS: ATTEND Internal Medicine
DX: G47.33 Obstructive sleep apnea (adult) (pediatric) (principal); F41.9 Anxiety disorder, unspecified; Z99.89 Dependence on other enabling machines and devices; Z79.899 Other long term (current) drug therapy; Z90.49 Acquired absence of other specified parts of digestive tract; Z86.59 Personal history of other mental and behavioral disorders; Z91.048 Other nonmedicinal substance allergy status
CPT/HCPCS: 99212

== ENCOUNTER → 2023-01-08 | Outpatient (CLI) | payer BC ==
--- NOTE | 2023-01-08 13:47 | P.PN ---
Subjective DATE: 01/08/2023 FOLLOW UP VISIT. Patient with obstructive sleep apnea hypopnea syndrome return to sleep center for follow-up visit. Information from previous visit have been reviewed. Patient is using PAP equipment every night for the whole night, getting PAP supplies in time. The patient does not have significant problems with the mask, PAP unit and humidification. [place] sleepiness scale is 8, which is normal. I checked information from PAP unit. PAP unit pressure 5-13, average 11.5 cm H2O. Usage is 70 % , average 5 hours per night. Leak is 16.9 l/m, which is in acceptable range. Apnea Hypopnea Index is 3.4, which is normal. MEDICATIONS:1. Trazodone 200 mg once a day 2. Pristiq 50 mg twice a day During physical exam: GENERAL: A pleasant patient without any distress. VITAL SIGNS: BP 118/79, HR 74, RR 16 , weight 218.8, temperature 98.3, oxygen saturation at room air 97 % . HEENT: PERRLA, EOMI.low position of soft palate, Mallapati 4 . NECK: Supple. No JVD. LUNGS: Clear to percussion and to auscultation. Good air exchange. No wheezing or rhonchi. HEART: S1, S2 regular. ABDOMEN: Soft and nontender.[] EXTREMITIES: No clubbing or cyanosis. POLLUTION CONTROL ENGINEER: Awake, alert, and oriented x3. No focal deficit. Impressions: 1. Obstructive sleep apnea-hypopnea syndrome. Patient demonstrated borderline compliance with treatment, benefiting from treatment. 2. History of out of dream movements in the past. 3. History of posttraumatic stress disorder. 4. History of multiple cavernomas in the brain. 5. Anxiety. 6. Status post cholecystectomy. 7. Status post partial hysterectomy. Plan: 1. Continue using PAP equipment every night for the whole night. 2. To change air filter at least 1-2 times per month. 3. PAP unit should stay lower then position of the head. 4. Advised patient to remove all remaining water from humidifier canister daily and make it dry after each usage. Refill canister with fresh distilled water before each usage. 5. Sleep hygiene with regular time in bed for at least 8 hours. 6. Precautions related to driving. No driving if feel any sleepiness. 7. I will maintain prescription for PAP supplies including mask, tube, filters. 8. Follow up visit in 6 months or earlier if patient has any problems. Thank you very much for allowing me to participate in the management of your patient. Mckinley Ramirez MD, PhD, FAASM. Diplomat of [place] [employer] Sleep Medicine, Sleep Medicine Board by [place] [employer] Medicine Director Pharmacy Services of [facility] [place]
== END ==
LOC: 3 N SLEEP 13:06
PROVIDERS: ATTEND Internal Medicine
DX: G47.33 Obstructive sleep apnea (adult) (pediatric) (principal); F41.9 Anxiety disorder, unspecified; F43.10 Post-traumatic stress disorder, unspecified; G47.8 Other sleep disorders; Z99.89 Dependence on other enabling machines and devices; Z85.841 Personal history of malignant neoplasm of brain; Z90.711 Acquired absence of uterus with remaining cervical stump; Z90.49 Acquired absence of other specified parts of digestive tract; Z91.048 Other nonmedicinal substance allergy status
CPT/HCPCS: 99212

== ENCOUNTER → 2024-04-29 | Outpatient (CLI) | payer BC ==
--- NOTE | 2024-04-29 15:28 | USB ---
Reason for Exam: Additional evaluation requested from abnormal screening. Patient History: Menarche at age 11. First Full-Term at age 22. Hysterectomy at age 30. Postmenopausal. Patient used Hormonal Contraceptives for 3 years. Risk Values: Nicole 5 year model risk: 0.7%. NCI Lifetime model risk: 8.6%. Technique: Method: Targeted. Prior Study Comparison: 08/27/2021 Bilateral MG 3D screening mammo w/cad, [facility]. 10/22/2022 Bilateral Screening Mammogram, [facility]. 04/15/2024 Bilateral MG 3D screening mammo w/cad, [facility]. Findings: The area of palpable concern of the left breast was scanned. Electronically signed and approved by: See Olmstead DO
--- NOTE | 2024-05-03 12:32 | MM ---
Reason for Exam: Additional evaluation requested from abnormal screening. Last screening mammogram was performed less than 1 month ago. Patient History: Menarche at age 11. First Full-Term at age 22. Hysterectomy at age 30. Postmenopausal. Patient used Hormonal Contraceptives for 3 years. Risk Values: Nicole 5 year model risk: 0.7%. NCI Lifetime model risk: 8.6%. Prior Study Comparison: 08/27/2021 Bilateral MG 3D screening mammo w/cad, [facility]. 10/22/2022 Bilateral Screening Mammogram, [facility]. 04/15/2024 Bilateral MG 3D screening mammo w/cad, [facility]. Tissue Density: Left: The breasts are heterogeneously dense, which may obscure small masses. Findings: Analyzed By CAD. Area persists on spot compression imaging in the area of palpable abnormality. 10.8 cm from nipple measuring up to 9 mm on MLO view. On LM view palpable marker not well appreciated. Overall Assessment: Incomplete: need additional imaging evaluation, BI-RAD 0 Management: Diagnostic Breast Ultrasound of the left breast. Results were given to the patient verbally at the time of exam. Patient should continue monthly self-breast exams. A clinical breast exam by your physician is recommended on an annual basis. This exam should not preclude additional follow-up of suspicious palpable abnormalities. Note on Nicole scores and lifetime risk: 1. A Nicole score greater than 3% is considered moderate risk. If this is the case, consider specialist referral to assess eligibility for a risk reducing agent. 2. If overall lifetime risk for the development of breast cancer is 20% or higher, the patient may qualify for future screening with alternating mammogram and breast MRI. [facility], , 04/29/2024 2:48 PM. Electronically signed and approved by: See Olmstead DO
== END | disposition home or self-care (01) ==
LOC: RADMAMWWP 14:23
PROVIDERS: ATTEND Family Medicine
DX: R92.8 Other abnormal and inconclusive findings on diagnostic imaging of breast (principal); R92.333 Mammographic heterogeneous density, bilateral breasts; Z78.0 Asymptomatic menopausal state; Z92.0 Personal history of contraception
CPT/HCPCS: 77061; 77065